=== PATIENT | male | born 1940 | race Caucasian/White ===

== ENCOUNTER 2016-12-12 01:13 | Emergency (ER) | payer MEDICARE, MEDICAID ==
[2016-12-12] MEDS ORDERED: hydrOXYzine HCl 25 MG Tab PO ONE ×2 (01:14→01:49)
[2016-12-12 01:36] VITALS: BP 190/99
--- NOTE | 2016-12-12 01:55 | EDM.PDOC ---
ED HPI GENERAL MEDICAL PROBLEM - General Chief Complaint: Cardiovascular Problem Stated Complaint: BP CHECKED [id number] Time Seen by Provider: 12/12/16 01:50 Source of Information: Reports: Patient History Limitations: Reports: No Limitations - History of Present Illness INITIAL COMMENTS - FREE TEXT/NARRATIVE: states his BP been high all night which causes him to be anxious. states was sick before and the docs had problems in regulating his BP. - Related Data Allergies Allergy/AdvReac Type Severity Reaction Status Date / Time gemfibrozil Allergy Leg Cramps Verified 12/12/16 01:27 Penicillins Allergy Hives Verified 12/12/16 01:27 albuterol AdvReac Tremors Verified 12/12/16 01:27 Home Meds: Home Meds Bisoprolol/Hydrochlorothiazide [Ziac 5-6.25 MG] 5 - 6.25 mg PO Q48H 05/24/15 [ History] Tamsulosin [Flomax] 0.4 mg PO BEDTIME 07/26/15 [History] Gabapentin [Neurontin] 300 mg PO BID 08/07/15 [History] Labetalol [Normodyne] 100 mg PO BID 04/14/16 [History] Past Medical History HEENT History: Reports: Impaired Vision Other HEENT History: wears glasses Cardiovascular History: Reports: Afib, Hypertension, Other (See Below) Other Cardiovascular History: "occasionally have had afib" Respiratory History: Reports: Bronchitis, Recurrent, Pneumonia, Recurrent Gastrointestinal History: Reports: None Genitourinary History: Reports: Prostate Disorder Musculoskeletal History: Reports: Back Pain, Chronic, Neck Pain, Chronic, Osteoarthritis Neurological History: Reports: TIA Other Neuro History: MRI recently showed "bumps in neck pressing on nerves" Psychiatric History: Reports: None Endocrine/Metabolic History: Reports: None Hematologic History: Reports: None Immunologic History: Reports: None Oncologic (Cancer) History: Reports: None Dermatologic History: Reports: None - Infectious Disease History Infectious Disease History: Reports: Chicken Pox, Measles, Mumps - Past Surgical History Head Surgeries/Procedures: Reports: None Social & Family History - Family History Family Medical History: Noncontributory Neurological: Reports: CVA - Tobacco Use Smoking Status *Q: Unknown Ever Smoked Years of Tobacco use: 20 Packs/Tins Daily: 0.5 Used Tobacco, but Quit: Yes Month Tobacco Last Used: 30 years ago Second Hand Smoke Exposure: No - Caffeine Use Caffeine Use: Reports: Soda Caffeine Use Comment: 1 bottle of Coke /day - Recreational Drug Use Recreational Drug Use: No - Living Situation & Occupation Living situation: Reports: Single, Alone Occupation: Retired ED ROS GENERAL - Review of Systems Review Of Systems: ROS reveals no pertinent complaints other than HPI. ED EXAM, GENERAL - Physical Exam Exam: See Below Exam Limited By: No Limitations General Appearance: Alert, WD/WN, Anxious Ears: Hearing Grossly Normal Throat/Mouth: Normal Voice, No Airway Compromise Head: Atraumatic Neck: Non-Tender, Full Range of Motion Respiratory/Chest: No Respiratory Distress Cardiovascular: Regular Rate, Rhythm GI/Abdominal: Soft, Non-Tender Neurological: Alert, Oriented, Normal Cognition, Normal Gait, No Motor/Sensory Deficits Psychiatric: Anxious Skin Exam: Warm, Dry, Normal Color Lymphatic: No Adenopathy Course - Vital Signs Last Recorded V/S: Last Vital Signs Temp 36.4 C 12/12/16 01:35 Pulse Resp 20 12/12/16 01:35 BP 190/99 H 12/12/16 01:36 Pulse Ox 98 12/12/16 01:35 - Orders/Labs/Meds Labs: Laboratory Tests 12/12/16 12/12/16 Range/Units 01:55 01:55 WBC 7.3 (5.0-10.0) 10^3/uL RBC 4.03 L (4.6-6.2) 10^6/uL Hgb 12.3 L (14.0-18.0) g/dL Hct 36.0 L (40.0-54.0) % MCV 89.3 (80-100) fL MCH 30.5 (27.0-34.0) pg MCHC 34.2 (33.0-35.0) g/dL Plt Count 120 L (150-450) 10^3/uL Neut % (Auto) 75.1 (42.2-75.2) % Lymph % (Auto) 14.5 L (20.5-50.1) % Story % (Auto) 7.7 (2-8) % Eos % (Auto) 2.2 (1.0-3.0) % Baso % (Auto) 0.5 (0.0-1.0) % Sodium 141 (135-145) mmol/L Potassium 4.3 (3.6-5.0) mmol/L Chloride 105 (101-111) mmol/L Carbon Dioxide 26.0 (21.0-31.0) mmol/L Anion Gap 14.3 BUN 30 H (7-18) mg/dL Creatinine 2.2 H (0.6-1.3) mg/dL Est Cr Clr Drug Dosing 30.42 mL/min Estimated GFR (MDRD) 29 BUN/Creatinine Ratio 13.63 Glucose 101 (74-105) mg/dL Calcium 8.6 (8.4-10.2) mg/dl Total Bilirubin 1.2 H (0.2-1.0) mg/dL AST 22 (10-42) IU/L ALT 22 (10-60) IU/L Alkaline Phosphatase 77 (42-121) IU/L Troponin I < 0.02 (0.00-0.02) ng/ml Total Protein 6.0 L (6.7-8.2) g/dl Albumin 4.0 (3.2-5.5) g/dl Globulin 2.0 Albumin/Globulin Ratio 2.00 Meds: Medications Discontinued Medications Generic Name Dose Route Start Last Admin Trade Name Freq PRN Reason Stop Dose Admin Hydroxyzine HCl 25 mg 12/12/16 01:49 12/12/16 01:59 Atarax PO 12/12/16 01:50 25 mg ONETIME ONE Administration - Re-Assessments/Exams Free Text/Narrative Re-Assessment/Exam: 12/12/16 02:35 re-exam; pt feels much better with BP lower and req' Rx for anxiety. states lives alone. Departure - Departure Time of Disposition: 02:35 Disposition: Home, Self-Care 01 Condition: Good Clinical Impression: HTN (hypertension) Qualifiers: Hypertension type: unspecified Qualified Code(s): I10 - Essential (primary) hypertension Reaction, situational Qualifiers: Adjustment disorder type: with anxious mood Qualified Code(s): F43.22 - Adjustment disorder with anxiety Instructions: Hypertension, [id number] Forms: ED Department Discharge Additional Instructions: 1) rest and avoid bending lifting straining 2) follow up with family doctor Tuesday for medication adjustment rx given; atarax 25mg bid prn x 12
[2016-12-12 02:18] LABS: CHLORIDE,CL 105 mmol/L (101-111); SODIUM,NA 141 mmol/L (135-145)
[2016-12-12] MEDS ORDERED: hydrOXYzine HCl 25 MG Tab ONE (02:35)
== END 2016-12-12 02:46 | disposition home or self-care (01) ==
LOC: DL.ED 01:13
DX: I10 Essential (primary) hypertension (principal); F43.22 Adjustment disorder with anxiety; I48.91 Unspecified atrial fibrillation; M19.90 Unspecified osteoarthritis, unspecified site; Z86.73 Personal history of transient ischemic attack (TIA), and cerebral infarction without residual deficits; Z87.891 Personal history of nicotine dependence; Z88.0 Allergy status to penicillin; Z88.8 Allergy status to other drugs, medicaments and biological substances
CPT/HCPCS: 36415; 80053; 84484; 85025; 99284; A9270

== ENCOUNTER 2017-02-19 14:06 | Inpatient (IN) | payer MEDICARE, MEDICAID ==
[2017-02-19] MEDS ORDERED: Ipratropium 0.02% 0.5 MG/2.5 ML Neb Soln NEB ONE (14:46)
[2017-02-19] MEDS ORDERED: Levofloxacin/Dextrose 5%-Water 500 MG in Premix Bag 1 BAG IV ONE (15:36)
[2017-02-19] MEDS: Lactated Ringers 1,000 ML IV ONE ×2 (15:48→16:13)
[2017-02-19] MEDS: Sodium Chloride 0.9% 10 ML Syringe FLUSH PRN ×2 (16:14→23:07)
--- NOTE | 2017-02-19 16:26 | EDM.PDOC ---
Scribed by Neeta Cline 02/19/17 [id number] for Adi Sprague MD ED HPI GENERAL MEDICAL PROBLEM - General Chief Complaint: Respiratory Problem Stated Complaint: ? PNEUMONIA Time Seen by Provider: 02/19/17 14:52 Source of Information: Reports: Patient, RN, RN Notes Reviewed History Limitations: Reports: No Limitations - History of Present Illness INITIAL COMMENTS - FREE TEXT/NARRATIVE: Patient arrives from home by POV with complaint of 3 days of worsening productive cough and thick yellow sputum, fevers, chills and generalized weakness. Admits to slight shortness of breath, decreased appetite and fatigue. Location: Reports: Chest Quality: Reports: Ache Severity: Severe Improves with: Reports: None Worsens with: Reports: None Associated Symptoms: Reports: No Other Symptoms - Related Data Allergies Allergy/AdvReac Type Severity Reaction Status Date / Time gemfibrozil Allergy Leg Cramps Verified 12/12/16 01:27 Penicillins Allergy Hives Verified 12/12/16 01:27 albuterol AdvReac Tremors Verified 12/12/16 01:27 Home Meds: Home Meds Bisoprolol/Hydrochlorothiazide [Ziac 5-6.25 MG] 5 - 6.25 mg PO DAILY 05/24/15 [ History] Tamsulosin [Flomax] 0.4 mg PO BEDTIME 07/26/15 [History] Gabapentin [Neurontin] 300 mg PO BID 08/07/15 [History] Labetalol [Normodyne] 100 mg PO BID 04/14/16 [History] Past Medical History HEENT History: Reports: Impaired Vision Other HEENT History: wears glasses Cardiovascular History: Reports: Afib, Hypertension, Other (See Below) Other Cardiovascular History: "occasionally have had afib" Respiratory History: Reports: Bronchitis, Recurrent, Pneumonia, Recurrent Gastrointestinal History: Reports: None Genitourinary History: Reports: Prostate Disorder Musculoskeletal History: Reports: Back Pain, Chronic, Neck Pain, Chronic, Osteoarthritis Neurological History: Reports: TIA Other Neuro History: MRI recently showed "bumps in neck pressing on nerves" Psychiatric History: Reports: None Endocrine/Metabolic History: Reports: None Hematologic History: Reports: None Immunologic History: Reports: None Oncologic (Cancer) History: Reports: None Dermatologic History: Reports: None - Infectious Disease History Infectious Disease History: Reports: Chicken Pox, Measles, Mumps - Past Surgical History Head Surgeries/Procedures: Reports: None Social & Family History - Family History Family Medical History: Noncontributory Neurological: Reports: CVA - Tobacco Use Smoking Status *Q: Former Smoker Years of Tobacco use: 20 Packs/Tins Daily: 0.5 Used Tobacco, but Quit: Yes Month Tobacco Last Used: 30 years ago Second Hand Smoke Exposure: No - Caffeine Use Caffeine Use: Reports: Soda Caffeine Use Comment: 1 bottle of Coke /day - Recreational Drug Use Recreational Drug Use: No - Living Situation & Occupation Living situation: Reports: Single, Alone Occupation: Retired ED ROS GENERAL - Review of Systems Review Of Systems: ROS reveals no pertinent complaints other than HPI. ED EXAM, GENERAL - Physical Exam Exam: See Below Exam Limited By: No Limitations General Appearance: Other (chronicly ill appearing. Non toxici appearing.) Eye Exam: Bilateral Eye: Normal Inspection Ears: Normal External Exam, Normal Canal, Hearing Grossly Normal, Normal TMs Nose: Normal Inspection, Normal Mucosa, No Blood Throat/Mouth: Normal Inspection, Normal Lips, Normal Teeth, Normal Gums, Normal Oropharynx, Normal Voice, No Airway Compromise Head: Atraumatic, Normocephalic Neck: Normal Inspection, Supple, Non-Tender, Full Range of Motion Respiratory/Chest: Decreased Breath Sounds (at bilateral bases with lower chest rhonchi.) Cardiovascular: Irregularly Irregular GI/Abdominal: Normal Bowel Sounds, Soft, Non-Tender, No Organomegaly, No Distention, No Abnormal Bruit, No Mass (Male) Exam: Deferred Rectal (Males) Exam: Deferred Back Exam: Normal Inspection, Full Range of Motion, NT Extremities: Normal Inspection, Normal Range of Motion, Non-Tender, Normal Capillary Refill, No Pedal Edema Neurological: Other (generalized weakness.) Psychiatric: Normal Affect, Normal Mood Skin Exam: Warm, Dry, Intact, Normal Color, No Rash Lymphatic: No Adenopathy Course - Vital Signs Last Recorded V/S: Last Vital Signs Temp 37.1 C 02/19/17 16:23 Pulse 67 02/19/17 16:23 Resp 14 02/19/17 16:23 BP 180/99 H 02/19/17 16:23 Pulse Ox 93 L 02/19/17 14:20 - Orders/Labs/Meds Orders: Active Orders 24 hr Category Date Time Status Peripheral IV Care [RC] . DIRECTED Care 02/19/17 14:47 Active RT Aerosol Therapy [RC] ASDIRECTED Care 02/19/17 14:45 Active RT Post Treatment Assessment [RC] Click to Edit Care 02/19/17 14:46 Active Chest 1V Frontal [CR] Stat Exams 02/19/17 14:47 Taken CULTURE BLOOD [BC] Stat Lab 02/19/17 15:00 Received CULTURE BLOOD [BC] Stat Lab 02/19/17 15:11 Received CULTURE SPUTUM + SMEAR [RM] Stat Lab 02/19/17 15:10 Results CULTURE STREP A CONFIRMATION [RM] Stat Lab 02/19/17 15:14 Results STREP SCRN A RAPID W CULT CONF [] Stat Lab 02/19/17 15:14 Results Lactated Ringers [Ringers, Lactated] 1,000 ml Med 02/19/17 15:35 Active IV .BOLUS Levofloxacin/Dextrose 5%-Water [Levaquin in D5W 500 MG/ Med 02/19/17 15:36 Active 100 ML] 500 mg Premix Bag 1 bag IV ONETIME Sodium Chloride 0.9% [Saline Flush] Med 02/19/17 14:46 Active 10 ml FLUSH ASDIRECTED PRN Blood Culture x2 Reflex Set [OM.PC] Stat Oth 02/19/17 14:47 Ordered Peripheral IV Insertion Adult [OM.PC] Stat Oth 02/19/17 14:47 Ordered Medication Orders Lactated Ringer's (Ringers, Lactated) 1,000 mls @ 200 mls/hr IV .BOLUS ONE Stop: 02/19/17 20:34 Last Admin: 02/19/17 16:13 Dose: 200 mls/hr Infusion: 02/19/17 16:13 Dose: 200 mls/hr Admin: 02/19/17 15:48 Dose: 200 mls/hr Levofloxacin/Dextrose 500 mg/ (Premix) 100 mls @ 100 mls/hr IV ONETIME ONE Stop: 02/19/17 16:35 Last Admin: 02/19/17 16:16 Dose: 100 mls/hr Sodium Chloride (Saline Flush) 10 ml FLUSH ASDIRECTED PRN PRN Reason: Keep Vein Open Last Admin: 02/19/17 16:14 Dose: 10 ml Labs: Laboratory Tests 02/19/17 02/19/17 02/19/17 Range/Units 15:00 15:00 15:00 WBC 12.3 H (5.0-10.0) 10^3/uL RBC 4.33 L (4.6-6.2) 10^6/uL Hgb 13.3 L (14.0-18.0) g/dL Hct 38.2 L (40.0-54.0) % MCV 88.2 (80-100) fL MCH 30.7 (27.0-34.0) pg MCHC 34.8 (33.0-35.0) g/dL Plt Count 121 L (150-450) 10^3/uL Neut % (Auto) 86.2 H (42.2-75.2) % Lymph % (Auto) 5.7 L (20.5-50.1) % Pershing % (Auto) 6.9 (2-8) % Eos % (Auto) 1.0 (1.0-3.0) % Baso % (Auto) 0.2 (0.0-1.0) % Sodium 140 (135-145) mmol/L Potassium 4.3 (3.6-5.0) mmol/L Chloride 105 (101-111) mmol/L Carbon Dioxide 27.0 (21.0-31.0) mmol/L Anion Gap 12.3 BUN 26 H (7-18) mg/dL Creatinine 1.8 H (0.6-1.3) mg/dL Est Cr Clr Drug Dosing 37.18 mL/min Estimated GFR (MDRD) 37 BUN/Creatinine Ratio 14.44 Glucose 103 (74-105) mg/dL Lactic Acid 1.1 (0.5-2.2) mmol/L Calcium 9.0 (8.4-10.2) mg/dl Total Bilirubin 1.2 H (0.2-1.0) mg/dL AST 20 (10-42) IU/L ALT 21 (10-60) IU/L Alkaline Phosphatase 85 (42-121) IU/L Total Protein 6.3 L (6.7-8.2) g/dl Albumin 4.2 (3.2-5.5) g/dl Globulin 2.1 Albumin/Globulin Ratio 2.00 Urine Color (YELLOW) Urine Appearance (CLEAR) Urine pH (5.0-9.0) Ur Specific [place] (1.005-1.030) Urine Protein (NEGATIVE) Urine Glucose (UA) (NEGATIVE) Urine Ketones (NEGATIVE) Urine Occult Blood (NEGATIVE) Urine Nitrite (NEGATIVE) Urine Bilirubin (NEGATIVE) Urine Urobilinogen (0.2-1.0) mg/dL Ur Leukocyte Esterase (NEGATIVE) Urine RBC /HPF Urine WBC (0-5/HPF) /HPF Ur Epithelial Cells /HPF Urine Bacteria (0-FEW/HPF) /HPF 02/19/17 Range/Units 15:50 WBC (5.0-10.0) 10^3/uL RBC (4.6-6.2) 10^6/uL Hgb (14.0-18.0) g/dL Hct (40.0-54.0) % MCV (80-100) fL MCH (27.0-34.0) pg MCHC (33.0-35.0) g/dL Plt Count (150-450) 10^3/uL Neut % (Auto) (42.2-75.2) % Lymph % (Auto) (20.5-50.1) % Pershing % (Auto) (2-8) % Eos % (Auto) (1.0-3.0) % Baso % (Auto) (0.0-1.0) % Sodium (135-145) mmol/L Potassium (3.6-5.0) mmol/L Chloride (101-111) mmol/L Carbon Dioxide (21.0-31.0) mmol/L Anion Gap BUN (7-18) mg/dL Creatinine (0.6-1.3) mg/dL Est Cr Clr Drug Dosing mL/min Estimated GFR (MDRD) BUN/Creatinine Ratio Glucose (74-105) mg/dL Lactic Acid (0.5-2.2) mmol/L Calcium (8.4-10.2) mg/dl Total Bilirubin (0.2-1.0) mg/dL AST (10-42) IU/L ALT (10-60) IU/L Alkaline Phosphatase (42-121) IU/L Total Protein (6.7-8.2) g/dl Albumin (3.2-5.5) g/dl Globulin Albumin/Globulin Ratio Urine Color Yellow (YELLOW) Urine Appearance Clear (CLEAR) Urine pH 5.0 (5.0-9.0) Ur Specific [place] 1.015 (1.005-1.030) Urine Protein 30 H (NEGATIVE) Urine Glucose (UA) Negative (NEGATIVE) Urine Ketones Negative (NEGATIVE) Urine Occult Blood Negative (NEGATIVE) Urine Nitrite Negative (NEGATIVE) Urine Bilirubin Negative (NEGATIVE) Urine Urobilinogen 0.2 (0.2-1.0) mg/dL Ur Leukocyte Esterase Negative (NEGATIVE) Urine RBC 0-5 /HPF Urine WBC 0-5 (0-5/HPF) /HPF Ur Epithelial Cells Not seen /HPF Urine Bacteria Rare (0-FEW/HPF) /HPF Rapid strep: Negative. Influenza A and B: Negative. Meds: Medications Generic Name Dose Route Start Last Admin Trade Name Freq PRN Reason Stop Dose Admin Lactated Ringer's 1,000 mls @ 200 mls/hr 02/19/17 15:35 02/19/17 16:13 Ringers, Lactated IV 02/19/17 20:34 200 mls/hr .BOLUS ONE Administration Levofloxacin/Dextrose 500 mg/ 100 mls @ 100 mls/hr 02/19/17 15:36 02/19/17 16 :16 Premix IV 02/19/17 16:35 100 mls/hr ONETIME ONE Administration Sodium Chloride 10 ml 02/19/17 14:46 02/19/17 16:14 Saline Flush FLUSH 10 ml ASDIRECTED PRN Administration Keep Vein Open Discontinued Medications Generic Name Dose Route Start Last Admin Trade Name Freq PRN Reason Stop Dose Admin Ipratropium Wirt 0.5 mg 02/19/17 14:46 02/19/17 15:18 Atrovent NEB 02/19/17 14:47 0.5 mg ONETIME ONE Administration - Radiology Interpretation Free Text/Narrative:: Chest x-ray. Probable right lower lobe and left lower lobe atelectasis. Early consolidation considered less likely but not excludable. See rad report. Departure - Departure Time of Disposition: 16:23 (Admit to Dr. Red) Disposition: Admitted As Inpatient 68 Condition: Serious Clinical Impression: Generalized weakness Pneumonia Qualifiers: Pneumonia type: due to unspecified organism Laterality: bilateral Lung location : lower lobe of lung Qualified Code(s): J18.9 - Pneumonia, unspecified organism - Discharge Information Forms: ED Department Discharge - My Orders Last 24 Hours: My Active Orders 02/19/17 14:45 RT Aerosol Therapy [RC] ASDIRECTED 02/19/17 14:46 RT Post Treatment Assessment [RC] Click to Edit Sodium Chloride 0.9% [Saline Flush] 10 ml FLUSH ASDIRECTED PRN 02/19/17 14:47 Peripheral IV Care [RC] . DIRECTED Chest 1V Frontal [CR] Stat Blood Culture x2 Reflex Set [OM.PC] Stat Peripheral IV Insertion Adult [OM.PC] Stat 02/19/17 15:00 CULTURE BLOOD [BC] Stat 02/19/17 15:10 CULTURE SPUTUM + SMEAR [RM] Stat 02/19/17 15:11 CULTURE BLOOD [BC] Stat 02/19/17 15:14 CULTURE STREP A CONFIRMATION [RM] Stat STREP SCRN A RAPID W CULT CONF [RM] Stat 02/19/17 15:35 Lactated Ringers [Ringers, Lactated] 1,000 ml IV .BOLUS 02/19/17 15:36 Levofloxacin/Dextrose 5%-Water [Levaquin in D5W 500 MG/100 ML] 500 mg Premix Bag 1 bag IV ONETIME - Assessment/Plan Last 24 Hours: My Active Orders 02/19/17 14:45 RT Aerosol Therapy [RC] ASDIRECTED 02/19/17 14:46 RT Post Treatment Assessment [RC] Click to Edit Sodium Chloride 0.9% [Saline Flush] 10 ml FLUSH ASDIRECTED PRN 02/19/17 14:47 Peripheral IV Care [RC] . DIRECTED Chest 1V Frontal [CR] Stat Blood Culture x2 Reflex Set [OM.PC] Stat Peripheral IV Insertion Adult [OM.PC] Stat 02/19/17 15:00 CULTURE BLOOD [BC] Stat 02/19/17 15:10 CULTURE SPUTUM + SMEAR [RM] Stat 02/19/17 15:11 CULTURE BLOOD [BC] Stat 02/19/17 15:14 CULTURE STREP A CONFIRMATION [RM] Stat STREP SCRN A RAPID W CULT CONF [RM] Stat 02/19/17 15:35 Lactated Ringers [Ringers, Lactated] 1,000 ml IV .BOLUS 02/19/17 15:36 Levofloxacin/Dextrose 5%-Water [Levaquin in D5W 500 MG/100 ML] 500 mg Premix Bag 1 bag IV ONETIME I have read and agree with the documentation that has been completed regarding this visit. By signing this record, I attest that the documentation was completed in my physical presence and is an accurate record of the encounter.
[2017-02-19] MEDS ORDERED: diphenhydrAMINE 50 MG/ML SDV IVPUSH ONE (16:30)
[2017-02-19] MEDS ORDERED: cefTRIAXone 1 GM in Sodium Chloride 0.9% 50 ML IV ONE (16:31)
[2017-02-19] MEDS ORDERED: Azithromycin 500 MG in Sodium Chloride 0.9% 250 ML IV ONE (16:32)
[2017-02-19] MEDS ORDERED: LORazepam 1 MG Tab PO ONE (16:47)
--- NOTE | 2017-02-19 18:19 | PCM.HP ---
H&P History of Present Illness - General Date of Service: 02/19/17 Source of Information: Patient, Family History Limitations: Reports: No Limitations - History of Present Illness Initial Comments - Free Text/Narative: Charlie Castañeda a 76 y.o.~male~has a history of hypertension , has been intermittently on medications, Afib in 2013., no history of diabetes Mellitus or coronary artery disease. On August 19, 2015, he underwent L4-L5 decompression surgery.Subsequently, he developed wound dehiscence with CSF leak was readmitted to [facility] on September 16, 2015. He developed headache, neck stiffness, alteration of mental status, and was having fever. He underwent bedside repair of CSF leak and was noted to have meningitis and was treted for roasterman with abx, for some he was at OR but now living independently with weekly home health nurse visit. Today he came to ED with weakness and complaint of 3 days of worsening productive cough and thick yellow sputum, fevers, chills . CXR showed probale Rt Lower lobe atelectasis vs. early consolidation Onset of Symptoms: Reports: Today Associated Symptoms: Reports: cough w sputum, Weakness - Related Data Allergies/Adverse Reactions: Allergies Allergy/AdvReac Type Severity Reaction Status Date / Time gemfibrozil Allergy Leg Cramps Verified 02/19/17 17:30 levofloxacin [From Levaquin] Allergy Rash and Verified 02/19/17 17:30 welts Penicillins Allergy Hives Verified 02/19/17 17:30 albuterol AdvReac Tremors Verified 02/19/17 17:30 Home Medications: Home Meds Bisoprolol/Hydrochlorothiazide [Ziac 5-6.25 MG] 5 - 6.25 mg PO DAILY 05/24/15 [ History] Tamsulosin [Flomax] 0.4 mg PO BEDTIME 07/26/15 [History] Gabapentin [Neurontin] 300 mg PO BID 08/07/15 [History] Labetalol [Normodyne] 100 mg PO BID 04/14/16 [History] Aspirin [Halfprin] 81 mg PO BRK 02/19/17 [History] Past Medical History HEENT History: Reports: Cataract, Impaired Vision Other HEENT History: wears glasses Cardiovascular History: Reports: Afib, Hypertension, Other (See Below) Other Cardiovascular History: "occasionally have had afib" Respiratory History: Reports: Bronchitis, Recurrent, Pneumonia, Recurrent Gastrointestinal History: Reports: None Genitourinary History: Reports: Prostate Disorder Musculoskeletal History: Reports: Back Pain, Chronic, Neck Pain, Chronic, Osteoarthritis Neurological History: Reports: TIA Other Neuro History: MRI recently showed "bumps in neck pressing on nerves" Psychiatric History: Reports: None Endocrine/Metabolic History: Reports: None Hematologic History: Reports: None Immunologic History: Reports: None Oncologic (Cancer) History: Reports: None Dermatologic History: Reports: Other (See Below) Other Dermatologic History: Ichthyosis - Infectious Disease History Infectious Disease History: Reports: Chicken Pox, Measles, Mumps Other Infectious Disease History: bacterial Meningitis 2016 - Past Surgical History Head Surgeries/Procedures: Reports: None HEENT Surgical History: Reports: None GI Surgical History: Reports: None Male Surgical History: Reports: None Musculoskeletal Surgical History: Reports: Other (See Below) Other Musculoskeletal Surgeries/Procedures:: back [id number] Social & Family History - Family History Family Medical History: Noncontributory Neurological: Reports: CVA - Tobacco Use Smoking Status *Q: Former Smoker Years of Tobacco use: 20 Packs/Tins Daily: 0.5 Used Tobacco, but Quit: Yes Month Tobacco Last Used: May Second Hand Smoke Exposure: No - Caffeine Use Caffeine Use: Reports: Coffee, Soda Caffeine Use Comment: 1 bottle of Coke /day - Recreational Drug Use Recreational Drug Use: No - Living Situation & Occupation Living situation: Reports: Single, Alone Occupation: Retired H&P Review of Systems - Review of Systems: Review Of Systems: See Below General: Reports: Fever, Weakness HEENT: Denies: Eye Pain, Headaches, Sinus Congestion, Visual Changes Pulmonary: Reports: Cough, Sputum. Denies: Shortness of Breath, Wheezing, Pleuritic Chest Pain Cardiovascular: Reports: Chest Pain, Lightheadedness Gastrointestinal: Denies: Abdominal Pain, Diarrhea, Difficulty Swallowing, Nausea, Vomiting Genitourinary: Denies: Dysuria, Frequency, Burning, Flank Pain Musculoskeletal: Denies: Neck Pain, Arm Pain, Back Pain, Muscle Pain Skin: Denies: Cyanosis, Dryness, Bruising, Pruritis, Rash Psychiatric: Denies: Confusion, Anxiety Neurological: Reports: Tremors (intentional). Denies: Confusion, Numbness Hematologic/Lymphatic: Reports: No Symptoms Immunologic: Reports: No Symptoms Exam - Exam Exam: See Below - Vital Signs Vital Signs: Last Vital Signs Temp 37.2 C 02/19/17 17:30 Pulse 78 02/19/17 17:30 Resp 20 02/19/17 17:30 BP 171/105 H 02/19/17 17:30 Pulse Ox 96 02/19/17 17:30 Weight: 95.527 kg - Exam Quality Assessment: Supplemental Oxygen, DVT Prophylaxis. No: Urinary Catheter General: Alert, Oriented, Cooperative HEENT: Conjunctiva Clear, EOMI, Hearing Intact, Mucosa Moist & [place] Neck: Supple. No: Lymphadenopathy, JVD Cardiovascular: Regular Rate, Regular Rhythm, Systolic Murmur GI/Abdominal Exam: Normal Bowel Sounds, Soft, Non-Tender, No Distention. No: Guarding, Rebound, Tender (Male) Exam: Deferred Rectal (Males) Exam: Deferred Back Exam: Normal Inspection, Full Range of Motion Extremities: Normal Inspection, No Pedal Edema Skin: Warm, Dry, Intact Neurological: Cranial Nerves Intact, Reflexes Equal Bilateral Neuro Extensive - Mental Status: Alert, Oriented x3, Normal Mood/Affect, Memory Intact Neuro Extensive - Motor, Sensory, Reflexes: CN II-XII Intact, Normal Gait, Normal Reflexes Psychiatric: Alert, Normal Affect, Normal Mood - Patient Data Result Diagrams: 02/19/17 15:00 02/19/17 15:00 *Q Meaningful Use (ADM) - VTE *Q VTE Criteria *Q: - Stroke *Q Stroke Criteria *Q: - AMI *Q AMI Criteria *Q: - Problem List (1) Pneumonia SNOMED Code(s): 133467341 ICD Code: J18.9 - PNEUMONIA, UNSPECIFIED ORGANISM Status: Acute Current Visit: Yes Qualifiers: Pneumonia type: due to unspecified organism Laterality: bilateral Lung location: lower lobe of lung Qualified Code(s): J18.9 - Pneumonia, unspecified organism (2) Weakness SNOMED Code(s): 70115965 ICD Code: R53.1 - WEAKNESS Status: Acute Current Visit: Yes (3) Low back pain SNOMED Code(s): 793307886 ICD Code: M54.5 - LOW BACK PAIN Status: Acute Current Visit: No Qualifiers: Chronicity: chronic Back pain laterality: left Sciatica presence: with sciatica Sciatica laterality: sciatica of left side Qualified Code(s): M54.42 - Lumbago with sciatica, left side; G89.29 - Other chronic pain; G89.29 - Other chronic pain Problem List Initiated/Reviewed/Updated: Yes Orders Last 24hrs: Medication Orders Lactated Ringer's (Ringers, Lactated) 1,000 mls @ 200 mls/hr IV .BOLUS ONE Stop: 02/19/17 20:34 Last Admin: 02/19/17 16:13 Dose: 200 mls/hr Infusion: 02/19/17 16:13 Dose: 200 mls/hr Admin: 02/19/17 15:48 Dose: 200 mls/hr Sodium Chloride (Saline Flush) 10 ml FLUSH ASDIRECTED PRN PRN Reason: Keep Vein Open Last Admin: 02/19/17 16:14 Dose: 10 ml Assessment/Plan Comment:: Mr. Guerra is a 76 y/O M admittted with low grade fever, weakness and possible Rt lower lobe Atelectasis Vs early consolidation 1. Likely Rt lower lobe pneumonia: This is likely community acquires Pneumonia -Will start him on Ceftriaxone 1 mg IV q12 hrs and Azithromycin 500 mg IV daily -Will continue supplemental oxygen to keep 02 sat>90% -Will encourage him to use incentive spirometry and Flutter valve 2. Weakness: The etiology not clear but likely from Pneumonia 3. Hypertension: Will continue labetalol and Hold Ziac 4. GI prophylaxis: continue protonix 5. DVT Prophylaxis: Heparin 5000 units TID 6. Code status: Discussed with and Son: he is full code
[2017-02-19] MEDS ORDERED: Docusate Sodium 100 MG Cap PO PRN (18:47)
[2017-02-19] MEDS ORDERED: Heparin Sodium 5,000 Units/ML Vial SUBCUT SCH (19:00)
[2017-02-19] MEDS: Acetaminophen 325 MG Tab PO PRN (21:06)
[2017-02-19] MEDS: Gabapentin 300 MG Cap PO SCH (21:07)
[2017-02-19] MEDS: Labetalol 100 MG Tab PO SCH (21:08)
[2017-02-19] MEDS: Tamsulosin 0.4 MG Cap.ER PO SCH (21:08)
[2017-02-19] MEDS: Heparin Sodium 5,000 Units/ML Vial SUBCUT SCH (21:11)
[2017-02-20] MEDS: Heparin Sodium 5,000 Units/ML Vial SUBCUT SCH ×4 (05:49→21:35)
[2017-02-20] MEDS: Pantoprazole 40 MG Tab.CR PO SCH (05:49)
[2017-02-20] MEDS: Aspirin 81 MG Tab.EC PO SCH (07:56)
[2017-02-20] MEDS: Gabapentin 300 MG Cap PO SCH ×3 (07:57→20:19)
[2017-02-20] MEDS: Acetaminophen 325 MG Tab PO PRN ×2 (07:57→20:33)
[2017-02-20] MEDS: Labetalol 100 MG Tab PO SCH ×3 (07:58→20:19)
[2017-02-20] MEDS ORDERED: Labetalol 100 MG Tab PO SCH (09:32)
[2017-02-20] MEDS: HYDROCHLOROTHIAZIDE PO SCH (10:55)
[2017-02-20] MEDS: BISOPROLOL PO SCH (10:55)
--- NOTE | 2017-02-20 11:59 | PCM.PN ---
- General Info Date of Service: 02/20/17 Admission Dx/Problem (Free Text): Admitted with: pneumonia, weakness and low grade fever Subjective Update: He is feeling much better today, No more fever, shortness of breath has improved significantly and still have with sputum Functional Status: Reports: Tolerating Diet. Denies: Ambulating, Urinating - Review of Systems General: Reports: Weakness, Appetite (good). Denies: Fever, Chills HEENT: Denies: Sinus Congestion, Sore Throat, Visual Changes Pulmonary: Reports: Shortness of Breath, Cough, Sputum. Denies: Wheezing Cardiovascular: Denies: Chest Pain, Edema, Lightheadedness Gastrointestinal: Denies: Abdominal Pain, Difficulty Swallowing, Nausea, Vomiting Genitourinary: Denies: Dysuria, Frequency, Burning, Urgency Musculoskeletal: Reports: Back Pain. Denies: Neck Pain, Shoulder Pain, Arm Pain Skin: Denies: Cyanosis, Jaundice, Bruising, Pruritis, Rash Neurological: Denies: Confusion, Numbness, Tingling, Tremors Psychiatric: Denies: Confusion, Anxiety - Patient Data Vitals - Most Recent: Last Vital Signs Temp 36.6 C 02/20/17 11:30 Pulse 62 02/20/17 11:30 Resp 20 02/20/17 11:30 BP 117/59 L 02/20/17 11:30 Pulse Ox 96 02/20/17 11:30 Weight - Most Recent: 95.527 kg I&O - Last 24 Hours: Intake & Output 02/19/17 02/20/17 02/20/17 22:59 06:59 14:59 Intake Total 250 1500 200 Output Total 100 750 300 Balance 150 750 -100 Lab Results Last 24 Hours: Laboratory Results - last 24 hr 02/20/17 Range/Units 06:05 WBC 11.1 H (5.0-10.0) 10^3/uL RBC 4.00 L (4.6-6.2) 10^6/uL Hgb 12.1 L (14.0-18.0) g/dL Hct 35.7 L (40.0-54.0) % MCV 89.3 (80-100) fL MCH 30.3 (27.0-34.0) pg MCHC 33.9 (33.0-35.0) g/dL Plt Count 107 L (150-450) 10^3/uL Neut % (Auto) 80.4 H (42.2-75.2) % Lymph % (Auto) 9.5 L (20.5-50.1) % [place] % (Auto) 8.7 H (2-8) % Eos % (Auto) 1.1 (1.0-3.0) % Baso % (Auto) 0.3 (0.0-1.0) % Med Orders - Current: Current Medications Acetaminophen (Tylenol) 650 mg PO Q4H PRN PRN Reason: Pain (mild 1-3 )/fever Last Admin: 02/20/17 07:57 Dose: 650 mg Aspirin (Halfprin) 81 mg PO BRK [facility] Last Admin: 02/20/17 07:56 Dose: 81 mg Ceftriaxone Sodium (Rocephin) 2 gm IV Q24H [facility] Docusate Sodium (Colace) 100 mg PO DAILY PRN PRN Reason: Constipation Last Admin: 02/20/17 07:56 Dose: 100 mg Gabapentin (Neurontin) 300 mg PO BID [facility] Last Admin: 02/20/17 08:07 Dose: Not Given Heparin Sodium (Porcine) (Heparin Sodium) 5,000 units SUBCUT TID@0600,1400, 2200 [facility] Last Admin: 02/20/17 05:49 Dose: 5,000 units Azithromycin 500 mg/ Sodium (Chloride) 250 mls @ 250 mls/hr IV Q24H [facility] Labetalol HCl (Normodyne) 100 mg PO BID [facility] Bisoprolol/Hydrochlorothiazide [Ziac 5-6.25 Mg] Own Med 0 mg PO DAILY [facility] Last Admin: 02/20/17 10:55 Dose: 5 mg Pantoprazole Sodium (Protonix) 40 mg PO ACBREAKFAST [facility] Last Admin: 02/20/17 05:49 Dose: 40 mg Sodium Chloride (Saline Flush) 10 ml FLUSH ASDIRECTED PRN PRN Reason: Keep Vein Open Last Admin: 02/19/17 23:07 Dose: 10 ml Tamsulosin HCl (Flomax) 0.4 mg PO BEDTIME [facility] Last Admin: 02/19/17 21:08 Dose: 0.4 mg Discontinued Medications Diphenhydramine HCl (Benadryl) 25 mg IVPUSH ONETIME ONE Stop: 02/19/17 16:31 Last Admin: 12/02/17 16:44 Dose: 25 mg Heparin Sodium (Porcine) (Heparin Sodium) 5,000 units SUBCUT Q8H [facility] Last Admin: 02/19/17 21:27 Dose: Not Given Lactated Ringer's (Ringers, Lactated) 1,000 mls @ 200 mls/hr IV .BOLUS ONE Stop: 02/19/17 20:34 Last Infusion: 02/19/17 23:08 Dose: Infused Levofloxacin/Dextrose 500 mg/ (Premix) 100 mls @ 100 mls/hr IV ONETIME ONE Stop: 02/19/17 16:35 Last Admin: 02/19/17 16:16 Dose: 100 mls/hr Azithromycin 500 mg/ Sodium (Chloride) 250 mls @ 250 mls/hr IV ONETIME ONE Stop: 02/19/17 17:31 Last Admin: 02/19/17 17:32 Dose: 250 mls/hr Ceftriaxone Sodium 1 gm/ (Sodium Chloride) 50 mls @ 100 mls/hr IV ONETIME ONE Stop: 02/19/17 17:00 Last Admin: 02/19/17 16:46 Dose: 100 mls/hr Ipratropium [place] (Atrovent) 0.5 mg NEB ONETIME ONE Stop: 02/19/17 14:47 Last Admin: 02/19/17 15:18 Dose: 0.5 mg Labetalol HCl (Normodyne) 100 mg PO BID [facility] Last Admin: 02/20/17 08:08 Dose: Not Given Labetalol HCl (Normodyne) 150 mg PO BID [facility] Lorazepam (Ativan) 1 mg PO ONETIME ONE Stop: 02/19/17 16:48 Last Admin: 02/19/17 16:54 Dose: 1 mg - Exam Quality Assessment: Supplemental Oxygen, DVT Prophylaxis. No: Urine Catheter General: Alert, Oriented, Cooperative, No Acute Distress HEENT: Pupils Equal, EOMI, Mucous Membr. Moist/[place] Neck: Supple, No JVD, No Thyromegaly Lungs: Clear to Auscultation, Normal Respiratory Effort, Crackles. No: Rhonchi , Wheezing Cardiovascular: Regular Rate, Regular Rhythm, Murmurs GI/Abdominal Exam: Normal Bowel Sounds, Non-Tender, No Organomegaly, No Distention. No: Guarding, Rigid, Rebound (Male) Exam: Deferred Back Exam: Normal Inspection, Full Range of Motion Extremities: Normal Inspection, Normal Range of Motion, No Pedal Edema Skin: Warm, Dry, Intact Neurological: No New Focal Deficit Psy/Mental Status: Alert, Normal Affect, Normal Mood - Problem List & Annotations (1) Pneumonia SNOMED Code(s): 311768425 Code(s): J18.9 - PNEUMONIA, UNSPECIFIED ORGANISM Status: Acute Current Visit: Yes Qualifiers: Pneumonia type: due to unspecified organism Laterality: bilateral Lung location: lower lobe of lung Qualified Code(s): J18.9 - Pneumonia, unspecified organism (2) Weakness SNOMED Code(s): 34117793 Code(s): R53.1 - WEAKNESS Status: Acute Current Visit: Yes (3) Low back pain SNOMED Code(s): 951607175 Code(s): M54.5 - LOW BACK PAIN Status: Acute Current Visit: No Qualifiers: Chronicity: chronic Back pain laterality: left Sciatica presence: with sciatica Sciatica laterality: sciatica of left side Qualified Code(s): M54.42 - Lumbago with sciatica, left side; G89.29 - Other chronic pain; G89.29 - Other chronic pain - Problem List Review Problem List Initiated/Reviewed/Updated: Yes - My Orders Last 24 Hours: My Active Orders 02/19/17 21:00 Gabapentin [Neurontin] 300 mg PO BID Tamsulosin [Flomax] 0.4 mg PO BEDTIME 02/19/17 22:00 Heparin Sodium 5,000 units SUBCUT TID@0600,1400,2200 02/19/17 22:23 RT Incentive Spirometry [RC] ASDIRECTED 02/20/17 06:00 Pantoprazole [ProTONIX] 40 mg PO ACBREAKFAST 02/20/17 08:00 Aspirin [Halfprin] 81 mg PO BRK 02/20/17 09:00 Bisoprolol/Hydrochlorothiazide [Ziac 5-6.25 MG] 0 mg PO DAILY 02/20/17 09:54 Labetalol [Normodyne] 100 mg PO BID 02/20/17 19:00 cefTRIAXone [Rocephin] 2 gm IV Q24H 02/20/17 21:00 Azithromycin [Zithromax] 500 mg Sodium Chloride 0.9% [Normal Saline] 250 ml IV Q24H - Plan Plan:: Mr. Guerra is a 76 y/O M admitted with low grade fever, weakness and possible Rt lower lobe Atelectasis Vs early consolidation 1. Likely Rt lower lobe pneumonia: This is likely community acquires Pneumonia -Will continue him on Ceftriaxone 1 mg IV q12 hrs and Azithromycin 500 mg IV daily -Will continue supplemental oxygen to keep 02 sat>90% -Will encourage him to use incentive spirometry and Flutter valve 2. Weakness: The etiology not clear but likely from Pneumonia 3. Hypertension: Will continue labetalol and Ziac 4. GI prophylaxis: continue protonix 5. DVT Prophylaxis: Heparin 5000 units TID 6. Code status: Discussed with and Son: He is full code
[2017-02-20] MEDS: Tamsulosin 0.4 MG Cap.ER PO SCH (20:19)
[2017-02-20] MEDS: cefTRIAXone 2 GM Vial IV SCH (20:20)
[2017-02-20] MEDS: Azithromycin 500 MG in Sodium Chloride 0.9% 250 ML IV SCH (20:20)
[2017-02-20] MEDS: Sodium Chloride 0.9% 10 ML Syringe FLUSH PRN (20:20)
[2017-02-21] MEDS: Heparin Sodium 5,000 Units/ML Vial SUBCUT SCH ×3 (05:35→21:30)
[2017-02-21] MEDS: Pantoprazole 40 MG Tab.CR PO SCH (05:35)
[2017-02-21] MEDS: guaiFENesin/Dextromethorphan 100-10 MG/5 ML Soln 5 ML Cup PO PRN ×3 (05:37→22:30)
[2017-02-21] MEDS: Aspirin 81 MG Tab.EC PO SCH (10:25)
[2017-02-21] MEDS: Labetalol 100 MG Tab PO SCH ×2 (10:25→21:16)
[2017-02-21] MEDS: Gabapentin 300 MG Cap PO SCH ×2 (10:25→21:16)
[2017-02-21] MEDS: BISOPROLOL PO SCH (11:15)
[2017-02-21] MEDS: HYDROCHLOROTHIAZIDE PO SCH (11:15)
--- NOTE | 2017-02-21 12:40 | PCM.PN ---
- General Info Date of Service: 02/21/17 Admission Dx/Problem (Free Text): Admitted with: pneumonia, weakness and low grade fever Subjective Update: Continues to have cough, sputum, No more fever, shortness of breath better but still present - Review of Systems General: Denies: Fever Pulmonary: Reports: Shortness of Breath Cardiovascular: Reports: Chest Pain (With coughing) Gastrointestinal: Denies: Abdominal Pain Genitourinary: Denies: Dysuria - Patient Data Vitals - Most Recent: Last Vital Signs Temp 36.7 C 02/21/17 11:03 Pulse 74 02/21/17 11:03 Resp 20 02/21/17 11:03 BP 139/91 H 02/21/17 11:03 Pulse Ox 96 02/21/17 11:03 Weight - Most Recent: 91.081 kg I&O - Last 24 Hours: Intake & Output 02/20/17 02/21/17 02/21/17 22:59 06:59 14:59 Intake Total 501 400 200 Output Total 350 Balance 151 400 200 Med Orders - Current: Current Medications Acetaminophen (Tylenol) 650 mg PO Q4H PRN PRN Reason: Pain (mild 1-3 )/fever Last Admin: 02/20/17 20:33 Dose: 650 mg Aspirin (Halfprin) 81 mg PO BRK [facility] Last Admin: 02/21/17 10:25 Dose: 81 mg Benzocaine/Menthol (Cepacol Sore Throat) 1 lozenge MUCMEM Q6HR PRN PRN Reason: cough, sore throat Ceftriaxone Sodium (Rocephin) 2 gm IV Q24H [facility] Last Admin: 02/20/17 20:20 Dose: 2 gm Diphenhydramine HCl (Benadryl) 25 mg PO BEDTIME PRN PRN Reason: Sleep Docusate Sodium (Colace) 100 mg PO DAILY PRN PRN Reason: Constipation Last Admin: 02/20/17 07:56 Dose: 100 mg Gabapentin (Neurontin) 300 mg PO BID [facility] Last Admin: 02/21/17 10:25 Dose: 300 mg Guaifenesin/Phenylephrine HCl (Robitussin Dm) 5 ml PO Q8H PRN PRN Reason: Cough Last Admin: 02/21/17 05:37 Dose: 5 ml Heparin Sodium (Porcine) (Heparin Sodium) 5,000 units SUBCUT TID@0600,1400, 2200 [facility] Last Admin: 02/21/17 05:35 Dose: 5,000 units Azithromycin 500 mg/ Sodium (Chloride) 250 mls @ 250 mls/hr IV Q24H [facility] Last Admin: 02/20/17 20:20 Dose: 250 mls/hr Labetalol HCl (Normodyne) 100 mg PO BID [facility] Last Admin: 02/21/17 10:25 Dose: 100 mg Bisoprolol/Hydrochlorothiazide [Ziac 5-6.25 Mg] Own Med 0 mg PO DAILY [facility] Last Admin: 02/21/17 11:15 Dose: 5 mg Pantoprazole Sodium (Protonix) 40 mg PO ACBREAKFAST [facility] Last Admin: 02/21/17 05:35 Dose: 40 mg Sodium Chloride (Saline Flush) 10 ml FLUSH ASDIRECTED PRN PRN Reason: Keep Vein Open Last Admin: 02/20/17 20:20 Dose: 10 ml Tamsulosin HCl (Flomax) 0.4 mg PO BEDTIME [facility] Last Admin: 02/20/17 20:19 Dose: 0.4 mg Discontinued Medications Diphenhydramine HCl (Benadryl) 25 mg IVPUSH ONETIME ONE Stop: 02/19/17 16:31 Last Admin: 02/19/17 16:44 Dose: 25 mg Heparin Sodium (Porcine) (Heparin Sodium) 5,000 units SUBCUT Q8H [facility] Last Admin: 02/19/17 21:27 Dose: Not Given Lactated Ringer's (Ringers, Lactated) 1,000 mls @ 200 mls/hr IV .BOLUS ONE Stop: 02/19/17 20:34 Last Infusion: 02/19/17 23:08 Dose: Infused Levofloxacin/Dextrose 500 mg/ (Premix) 100 mls @ 100 mls/hr IV ONETIME ONE Stop: 02/19/17 16:35 Last Admin: 02/19/17 16:16 Dose: 100 mls/hr Azithromycin 500 mg/ Sodium (Chloride) 250 mls @ 250 mls/hr IV ONETIME ONE Stop: 02/19/17 17:31 Last Admin: 02/19/17 17:32 Dose: 250 mls/hr Ceftriaxone Sodium 1 gm/ (Sodium Chloride) 50 mls @ 100 mls/hr IV ONETIME ONE Stop: 02/19/17 17:00 Last Admin: 02/19/17 16:46 Dose: 100 mls/hr Ipratropium [place] (Atrovent) 0.5 mg NEB ONETIME ONE Stop: 02/19/17 14:47 Last Admin: 02/19/17 15:18 Dose: 0.5 mg Labetalol HCl (Normodyne) 100 mg PO BID [facility] Last Admin: 02/20/17 08:08 Dose: Not Given Labetalol HCl (Normodyne) 150 mg PO BID [facility] Lorazepam (Ativan) 1 mg PO ONETIME ONE Stop: 02/19/17 16:48 Last Admin: 02/19/17 16:54 Dose: 1 mg - Exam General: Alert, Oriented Neck: Supple Lungs: Normal Respiratory Effort, Decreased Breath Sounds Cardiovascular: Regular Rate, Regular Rhythm GI/Abdominal Exam: Normal Bowel Sounds, Soft, Non-Tender Extremities: No Pedal Edema - Problem List & Annotations (1) Pneumonia SNOMED Code(s): 144169854 Code(s): J18.9 - PNEUMONIA, UNSPECIFIED ORGANISM Status: Acute Current Visit: Yes Qualifiers: Pneumonia type: due to unspecified organism Laterality: bilateral Lung location: lower lobe of lung Qualified Code(s): J18.9 - Pneumonia, unspecified organism (2) Weakness SNOMED Code(s): 52364362 Code(s): R53.1 - WEAKNESS Status: Acute Current Visit: Yes - Problem List Review Problem List Initiated/Reviewed/Updated: Yes - My Orders Last 24 Hours: My Active Orders 02/21/17 12:20 Benzocaine/Cetylpyrd/Menthol [Cepacol Sore Throat] 1 lozenge MUCMEM Q6HR PRN 02/21/17 12:33 diphenhydrAMINE [Benadryl] 25 mg PO BEDTIME PRN 02/22/17 05:15 BASIC METABOLIC PANEL,BMP [CHEM] AM CBC WITH AUTO DIFF [HEME] AM - Plan Plan:: Mr. Guerra is a 76 y/O M admitted with low grade fever, weakness and possible Rt lower lobe Atelectasis Vs early consolidation 1. Likely Rt lower lobe community-acquired pneumonia -Treat with Ceftriaxone 1 mg IV q12 hrs and Azithromycin 500 mg IV daily -Will continue supplemental oxygen to keep 02 sat>90% -Will encourage him to use incentive spirometry and Flutter valve -Use cough suppressants, and Benadryl for sleep 2. Weakness: Improving 3. Hypertension: Will continue labetalol and Ziac 4. GI prophylaxis: continue protonix 5. DVT Prophylaxis: Heparin 5000 units TID
[2017-02-21] MEDS: Benzocaine/Cetylpyridinium/Menthol Lozenge MUCMEM PRN ×2 (14:47→22:30)
[2017-02-21] MEDS: Sodium Chloride 0.9% 10 ML Syringe FLUSH PRN ×4 (20:36→22:22)
[2017-02-21] MEDS: cefTRIAXone 2 GM Vial IV SCH (20:37)
[2017-02-21] MEDS: Azithromycin 500 MG in Sodium Chloride 0.9% 250 ML IV SCH (21:09)
[2017-02-21] MEDS: Tamsulosin 0.4 MG Cap.ER PO SCH (21:16)
[2017-02-22] MEDS: diphenhydrAMINE 25 MG Tab PO PRN ×2 (00:38→22:13)
[2017-02-22] MEDS: Heparin Sodium 5,000 Units/ML Vial SUBCUT SCH ×3 (06:03→21:07)
[2017-02-22] MEDS: Pantoprazole 40 MG Tab.CR PO SCH (06:05)
[2017-02-22] MEDS: Labetalol 100 MG Tab PO SCH ×2 (08:46→21:03)
[2017-02-22] MEDS: Aspirin 81 MG Tab.EC PO SCH (08:46)
[2017-02-22] MEDS: Gabapentin 300 MG Cap PO SCH ×2 (08:46→21:03)
--- NOTE | 2017-02-22 11:05 | PCM.PN ---
- General Info Date of Service: 02/22/17 Admission Dx/Problem (Free Text): Admitted with: pneumonia, weakness and low grade fever Subjective Update: Continues to have cough but feels better. Continues to have sputum, slept well last night shortness of breath better but still present No abdominal pain - Review of Systems General: Reports: Fever (Low-grade last night), Weakness Pulmonary: Reports: Shortness of Breath, Pleuritic Chest Pain, Cough Genitourinary: Denies: Dysuria Neurological: Denies: Confusion - Patient Data Vitals - Most Recent: Last Vital Signs Temp 36.8 C 02/22/17 07:51 Pulse 78 02/22/17 08:46 Resp 20 02/22/17 07:51 BP 133/77 02/22/17 08:46 Pulse Ox 96 02/22/17 07:51 Weight - Most Recent: 91.081 kg I&O - Last 24 Hours: Intake & Output 02/21/17 02/22/17 02/22/17 22:59 06:59 14:59 Intake Total 254 400 Output Total 220 Balance 254 180 Lab Results Last 24 Hours: Laboratory Results - last 24 hr 02/22/17 02/22/17 Range/Units 06:05 06:05 WBC 8.7 (5.0-10.0) 10^3/uL RBC 4.02 L (4.6-6.2) 10^6/uL Hgb 12.1 L (14.0-18.0) g/dL Hct 35.8 L (40.0-54.0) % MCV 89.1 (80-100) fL MCH 30.1 (27.0-34.0) pg MCHC 33.8 (33.0-35.0) g/dL Plt Count 111 L (150-450) 10^3/uL Neut % (Auto) 73.3 (42.2-75.2) % Lymph % (Auto) 13.0 L (20.5-50.1) % Burnett % (Auto) 10.2 H (2-8) % Eos % (Auto) 3.0 (1.0-3.0) % Baso % (Auto) 0.5 (0.0-1.0) % Sodium 142 (135-145) mmol/L Potassium 3.8 (3.6-5.0) mmol/L Chloride 102 (101-111) mmol/L Carbon Dioxide 28.0 (21.0-31.0) mmol/L Anion Gap 15.8 BUN 29 H (7-18) mg/dL Creatinine 1.9 H (0.6-1.3) mg/dL Est Cr Clr Drug Dosing 35.22 mL/min Estimated GFR (MDRD) 35 Glucose 78 (74-105) mg/dL Calcium 8.5 (8.4-10.2) mg/dl Med Orders - Current: Current Medications Acetaminophen (Tylenol) 650 mg PO Q4H PRN PRN Reason: Pain (mild 1-3 )/fever Last Admin: 02/20/17 20:33 Dose: 650 mg Aspirin (Halfprin) 81 mg PO BRK [facility] Last Admin: 02/22/17 08:46 Dose: 81 mg Benzocaine/Menthol (Cepacol Sore Throat) 1 lozenge MUCMEM Q6HR PRN PRN Reason: cough, sore throat Last Admin: 02/21/17 22:30 Dose: 1 lozenge Ceftriaxone Sodium (Rocephin) 2 gm IV Q24H [facility] Last Admin: 02/21/17 20:37 Dose: 2 gm Diphenhydramine HCl (Benadryl) 25 mg PO BEDTIME PRN PRN Reason: Sleep Last Admin: 02/22/17 00:38 Dose: 25 mg Docusate Sodium (Colace) 100 mg PO DAILY PRN PRN Reason: Constipation Last Admin: 02/20/17 07:56 Dose: 100 mg Gabapentin (Neurontin) 300 mg PO BID [facility] Last Admin: 02/22/17 08:46 Dose: 300 mg Guaifenesin/Phenylephrine HCl (Robitussin Dm) 5 ml PO Q8H PRN PRN Reason: Cough Last Admin: 02/21/17 22:30 Dose: 5 ml Heparin Sodium (Porcine) (Heparin Sodium) 5,000 units SUBCUT TID@0600,1400, 2200 [facility] Last Admin: 02/22/17 06:03 Dose: 5,000 units Azithromycin 500 mg/ Sodium (Chloride) 250 mls @ 250 mls/hr IV Q24H [facility] Last Admin: 02/21/17 21:09 Dose: 250 mls/hr Labetalol HCl (Normodyne) 100 mg PO BID [facility] Last Admin: 02/22/17 08:46 Dose: 100 mg Bisoprolol/Hydrochlorothiazide [Ziac 5-6.25 Mg] Own Med 0 mg PO DAILY [facility] Last Admin: 02/21/17 11:15 Dose: 5 mg Pantoprazole Sodium (Protonix) 40 mg PO ACBREAKFAST [facility] Last Admin: 02/22/17 06:05 Dose: 40 mg Sodium Chloride (Saline Flush) 10 ml FLUSH ASDIRECTED PRN PRN Reason: Keep Vein Open Last Admin: 02/21/17 22:22 Dose: 10 ml Tamsulosin HCl (Flomax) 0.4 mg PO BEDTIME [facility] Last Admin: 02/21/17 21:16 Dose: 0.4 mg Discontinued Medications Diphenhydramine HCl (Benadryl) 25 mg IVPUSH ONETIME ONE Stop: 02/19/17 16:31 Last Admin: 02/19/17 16:44 Dose: 25 mg Heparin Sodium (Porcine) (Heparin Sodium) 5,000 units SUBCUT Q8H [facility] Last Admin: 02/19/17 21:27 Dose: Not Given Lactated Ringer's (Ringers, Lactated) 1,000 mls @ 200 mls/hr IV .BOLUS ONE Stop: 02/19/17 20:34 Last Infusion: 02/19/17 23:08 Dose: Infused Levofloxacin/Dextrose 500 mg/ (Premix) 100 mls @ 100 mls/hr IV ONETIME ONE Stop: 02/19/17 16:35 Last Admin: 02/19/17 16:16 Dose: 100 mls/hr Azithromycin 500 mg/ Sodium (Chloride) 250 mls @ 250 mls/hr IV ONETIME ONE Stop: 02/19/17 17:31 Last Admin: 02/19/17 17:32 Dose: 250 mls/hr Ceftriaxone Sodium 1 gm/ (Sodium Chloride) 50 mls @ 100 mls/hr IV ONETIME ONE Stop: 02/19/17 17:00 Last Admin: 02/19/17 16:46 Dose: 100 mls/hr Ipratropium [place] (Atrovent) 0.5 mg NEB ONETIME ONE Stop: 02/19/17 14:47 Last Admin: 02/19/17 15:18 Dose: 0.5 mg Labetalol HCl (Normodyne) 100 mg PO BID [facility] Last Admin: 02/20/17 08:08 Dose: Not Given Labetalol HCl (Normodyne) 150 mg PO BID [facility] Lorazepam (Ativan) 1 mg PO ONETIME ONE Stop: 02/19/17 16:48 Last Admin: 02/19/17 16:54 Dose: 1 mg - Exam General: Alert Neck: Supple Lungs: Clear to Auscultation, Normal Respiratory Effort Cardiovascular: Regular Rate, Regular Rhythm Extremities: No Pedal Edema - Problem List & Annotations (1) Pneumonia SNOMED Code(s): 446755461 Code(s): J18.9 - PNEUMONIA, UNSPECIFIED ORGANISM Status: Acute Current Visit: Yes Qualifiers: Pneumonia type: due to unspecified organism Laterality: bilateral Lung location: lower lobe of lung Qualified Code(s): J18.9 - Pneumonia, unspecified organism (2) Weakness SNOMED Code(s): 00615850 Code(s): R53.1 - WEAKNESS Status: Acute Current Visit: Yes - Problem List Review Problem List Initiated/Reviewed/Updated: Yes - My Orders Last 24 Hours: My Active Orders 02/21/17 12:20 Benzocaine/Cetylpyrd/Menthol [Cepacol Sore Throat] 1 lozenge MUCMEM Q6HR PRN 02/21/17 12:33 diphenhydrAMINE [Benadryl] 25 mg PO BEDTIME PRN - Plan Plan:: Mr. Guerra is a 76 y/O M admitted with low grade fever, weakness and possible Rt lower lobe Atelectasis Vs early consolidation 1. Likely Rt lower lobe community-acquired pneumonia -Treat with Ceftriaxone 1 mg IV q12 hrs and Azithromycin 500 mg IV daily -Will supplement oxygen as needed -Will encourage him to use incentive spirometry and Flutter valve -Use cough suppressants, and Benadryl for sleep 2. Weakness: Improving 3. Hypertension: Will continue labetalol and Ziac 4. GI prophylaxis: continue protonix 5. DVT Prophylaxis: Heparin 5000 units TID
[2017-02-22] MEDS: BISOPROLOL PO SCH (14:03)
[2017-02-22] MEDS: HYDROCHLOROTHIAZIDE PO SCH (14:03)
[2017-02-22] MEDS: guaiFENesin/Dextromethorphan 100-10 MG/5 ML Soln 5 ML Cup PO PRN (14:38)
[2017-02-22] MEDS: Benzocaine/Cetylpyridinium/Menthol Lozenge MUCMEM PRN (14:38)
[2017-02-22] MEDS: cefTRIAXone 2 GM Vial IV SCH (18:04)
[2017-02-22] MEDS: Sodium Chloride 0.9% 10 ML Syringe FLUSH PRN (20:54)
[2017-02-22] MEDS: Azithromycin 500 MG in Sodium Chloride 0.9% 250 ML IV SCH (20:57)
[2017-02-22] MEDS: Tamsulosin 0.4 MG Cap.ER PO SCH (21:03)
[2017-02-22] MEDS: Acetaminophen 325 MG Tab PO PRN (21:12)
[2017-02-23] MEDS: Heparin Sodium 5,000 Units/ML Vial SUBCUT SCH (06:05)
[2017-02-23] MEDS: Pantoprazole 40 MG Tab.CR PO SCH (06:06)
[2017-02-23 07:58] VITALS: BP 146/83
[2017-02-23] MEDS: Gabapentin 300 MG Cap PO SCH (08:31)
[2017-02-23] MEDS: Aspirin 81 MG Tab.EC PO SCH (08:33)
[2017-02-23] MEDS: HYDROCHLOROTHIAZIDE PO SCH (08:33)
[2017-02-23] MEDS: Labetalol 100 MG Tab PO SCH (08:33)
[2017-02-23] MEDS: BISOPROLOL PO SCH (08:33)
--- NOTE | 2017-02-23 10:36 | PCM.DCSUM1 ---
Discharge Summary - Hospital Course Free Text/Narrative:: Mr. Guerra is a 76 y/O M admitted with low grade fever, weakness and possible Rt lower lobe Atelectasis Vs early consolidation 1. Likely Rt lower lobe community-acquired pneumonia -Treated with Ceftriaxone 1 mg IV q12 hrs and Azithromycin 500 mg IV daily Leukocytosis has resolved, patient become afebrile The patient will continue on oral antibiotic. Levofloxacin 2. Hypertension: Will continue labetalol and Ziac - Discharge Data Discharge Date: 02/23/17 Discharge Disposition: Home, Self-Care 01 Condition: Stable - Discharge Diagnosis/Problem(s) (1) Pneumonia SNOMED Code(s): 027208575 ICD Code: J18.9 - PNEUMONIA, UNSPECIFIED ORGANISM Status: Acute Current Visit: Yes Qualifiers: Pneumonia type: due to unspecified organism Laterality: bilateral Lung location: lower lobe of lung Qualified Code(s): J18.9 - Pneumonia, unspecified organism (2) Weakness SNOMED Code(s): 13846192 ICD Code: R53.1 - WEAKNESS Status: Acute Current Visit: Yes - Patient Instructions Diet: Heart Healthy Diet Activity: As Tolerated - Discharge Plan Prescriptions/Med Rec: Dextromethorphan/guaiFENesin [Robitussin DM] 5 ml PO Q8H PRN #100 ml PRN Reason: Cough Levofloxacin 500 mg PO DAILY #7 tablet Home Medications: Home Meds Bisoprolol/Hydrochlorothiazide [Ziac 5-6.25 MG] 5 - 6.25 mg PO DAILY 05/24/15 [ History] Tamsulosin [Flomax] 0.4 mg PO BEDTIME 07/26/15 [History] Gabapentin [Neurontin] 300 mg PO BID 08/07/15 [History] Labetalol [Normodyne] 100 mg PO BID 04/14/16 [History] Aspirin [Halfprin] 81 mg PO BRK 02/19/17 [History] Dextromethorphan/guaiFENesin [Robitussin DM] 5 ml PO Q8H PRN #100 ml 02/23/17 [ Rx] Levofloxacin 500 mg PO DAILY #7 tablet 02/23/17 [Rx] Patient Handouts: Community-Acquired Pneumonia, Adult, [id number] Referrals: PCP,None [Primary Care Provider] - (dr. Sosa) - Discharge Summary/Plan Comment DC Time >30 min.: No - General Info Date of Service: 02/23/17 Admission Dx/Problem (Free Text: Admitted with: pneumonia, weakness and low grade fever Subjective Update: Continues to have cough but feels better. Continues to have sputum, slept well last night No fever - Review of Systems General: Denies: Fever, Weakness Pulmonary: Denies: Shortness of Breath Cardiovascular: Denies: Chest Pain Gastrointestinal: Denies: Abdominal Pain Neurological: Denies: Confusion - Patient Data Vitals - Most Recent: Last Vital Signs Temp 36.8 C 02/23/17 07:57 Pulse 84 02/23/17 08:33 Resp 20 02/23/17 07:57 BP 146/83 H 02/23/17 08:33 Pulse Ox 98 02/23/17 07:57 Weight - Most Recent: 91.081 kg I&O - Last 24 hours: Intake & Output 02/22/17 02/23/17 02/23/17 22:59 06:59 14:59 Intake Total 540 300 240 Output Total 275 Balance 540 25 240 Med Orders - Current: Current Medications Acetaminophen (Tylenol) 650 mg PO Q4H PRN PRN Reason: Pain (mild 1-3 )/fever Last Admin: 02/22/17 21:12 Dose: 650 mg Aspirin (Halfprin) 81 mg PO BRK [facility] Last Admin: 02/23/17 08:33 Dose: 81 mg Benzocaine/Menthol (Cepacol Sore Throat) 1 lozenge MUCMEM Q6HR PRN PRN Reason: cough, sore throat Last Admin: 02/22/17 14:38 Dose: 1 lozenge Ceftriaxone Sodium (Rocephin) 2 gm IV Q24H [facility] Last Admin: 02/22/17 18:04 Dose: 2 gm Diphenhydramine HCl (Benadryl) 25 mg PO BEDTIME PRN PRN Reason: Sleep Last Admin: 02/22/17 22:13 Dose: 25 mg Docusate Sodium (Colace) 100 mg PO DAILY PRN PRN Reason: Constipation Last Admin: 02/20/17 07:56 Dose: 100 mg Gabapentin (Neurontin) 300 mg PO BID [facility] Last Admin: 02/23/17 08:31 Dose: 300 mg Guaifenesin/Phenylephrine HCl (Robitussin Dm) 5 ml PO Q8H PRN PRN Reason: Cough Last Admin: 02/22/17 14:38 Dose: 5 ml Heparin Sodium (Porcine) (Heparin Sodium) 5,000 units SUBCUT TID@0600,1400, 2200 [facility] Last Admin: 02/23/17 06:05 Dose: 5,000 units Azithromycin 500 mg/ Sodium (Chloride) 250 mls @ 250 mls/hr IV Q24H [facility] Last Admin: 02/22/17 20:57 Dose: 250 mls/hr Labetalol HCl (Normodyne) 100 mg PO BID [facility] Last Admin: 02/23/17 08:33 Dose: 100 mg Bisoprolol/Hydrochlorothiazide [Ziac 5-6.25 Mg] Own Med 0 mg PO DAILY [facility] Last Admin: 02/23/17 08:33 Dose: Not Given Pantoprazole Sodium (Protonix) 40 mg PO ACBREAKFAST [facility] Last Admin: 02/23/17 06:06 Dose: 40 mg Sodium Chloride (Saline Flush) 10 ml FLUSH ASDIRECTED PRN PRN Reason: Keep Vein Open Last Admin: 02/22/17 20:54 Dose: 10 ml Tamsulosin HCl (Flomax) 0.4 mg PO BEDTIME [facility] Last Admin: 02/22/17 21:03 Dose: 0.4 mg Discontinued Medications Diphenhydramine HCl (Benadryl) 25 mg IVPUSH ONETIME ONE Stop: 02/19/17 16:31 Last Admin: 02/19/17 16:44 Dose: 25 mg Heparin Sodium (Porcine) (Heparin Sodium) 5,000 units SUBCUT Q8H [facility] Last Admin: 02/19/17 21:27 Dose: Not Given Lactated Ringer's (Ringers, Lactated) 1,000 mls @ 200 mls/hr IV .BOLUS ONE Stop: 02/19/17 20:34 Last Infusion: 02/19/17 23:08 Dose: Infused Levofloxacin/Dextrose 500 mg/ (Premix) 100 mls @ 100 mls/hr IV ONETIME ONE Stop: 02/19/17 16:35 Last Admin: 02/19/17 16:16 Dose: 100 mls/hr Azithromycin 500 mg/ Sodium (Chloride) 250 mls @ 250 mls/hr IV ONETIME ONE Stop: 02/19/17 17:31 Last Admin: 02/19/17 17:32 Dose: 250 mls/hr Ceftriaxone Sodium 1 gm/ (Sodium Chloride) 50 mls @ 100 mls/hr IV ONETIME ONE Stop: 02/19/17 17:00 Last Admin: 02/19/17 16:46 Dose: 100 mls/hr Ipratropium [place] (Atrovent) 0.5 mg NEB ONETIME ONE Stop: 02/19/17 14:47 Last Admin: 02/19/17 15:18 Dose: 0.5 mg Labetalol HCl (Normodyne) 100 mg PO BID [facility] Last Admin: 02/20/17 08:08 Dose: Not Given Labetalol HCl (Normodyne) 150 mg PO BID [facility] Lorazepam (Ativan) 1 mg PO ONETIME ONE Stop: 02/19/17 16:48 Last Admin: 02/19/17 16:54 Dose: 1 mg - Exam Quality Assessment: Denies: Supplemental Oxygen General: Reports: Alert, Oriented Neck: Reports: Supple Lungs: Reports: Clear to Auscultation, Normal Respiratory Effort Cardiovascular: Reports: Regular Rate, Regular Rhythm GI/Abdominal Exam: Normal Bowel Sounds, Soft, Non-Tender Extremities: No Pedal Edema *Q Meaningful Use (DIS) - VTE *Q VTE Criteria *Q: - Stroke *Q Stroke Criteria *Q: - AMI *Q AMI Criteria *Q:
== END 2017-02-23 13:25 | disposition home or self-care (01) | DRG 195 ==
LOC: DL.ED 14:06 → OBSVTOIN 16:46 → UNDOADMOB 16:46 → INTOOBSV 16:46 → DL.MS 16:46 → OBSVTOIN 18:48
PROVIDERS: ADMIT Internal Medicine Nephrology; ATTEND Internal Medicine Nephrology
DX: J18.9 Pneumonia, unspecified organism (principal); R53.1 Weakness; G89.29 Other chronic pain; M54.42 Lumbago with sciatica, left side; I10 Essential (primary) hypertension; I48.91 Unspecified atrial fibrillation; Z87.01 Personal history of pneumonia (recurrent); N42.9 Disorder of prostate, unspecified; Z86.73 Personal history of transient ischemic attack (TIA), and cerebral infarction without residual deficits; M19.90 Unspecified osteoarthritis, unspecified site; H54.7 Unspecified visual loss; Z87.891 Personal history of nicotine dependence; Z88.0 Allergy status to penicillin; Z88.1 Allergy status to other antibiotic agents; Z88.8 Allergy status to other drugs, medicaments and biological substances; Z79.82 Long term (current) use of aspirin; Z79.899 Other long term (current) drug therapy
CPT/HCPCS: 36415; 71010; 80053; 81001; 83605; 85025; 87040 ×2; 87070; 87081; 87205; 87430; 87804 ×2; 94640; 96365; 96375; 99285; A9270; J0456; J0696; J1200; J1956; J7050 ×3; J7120 ×2; 80048; 99284; J1644

== ENCOUNTER 2019-12-05 08:17 | Day surgery (SDC) | payer MEDICARE, MEDICAID ==
[2019-12-05] MEDS ORDERED: Midazolam 1 MG/ML 2 ML SDV IV ONE (08:18)
[2019-12-05] MEDS ORDERED: Dexamethasone 4 MG/ML SDV IV ONE (08:18)
[2019-12-05] MEDS ORDERED: Sodium Chloride 0.9% 10 ML Syringe IV ONE (08:18)
[2019-12-05] MEDS ORDERED: Dilation Soln 1 EA EACH EYELF ONE (08:30)
[2019-12-05] MEDS ORDERED: Sodium Chloride 0.9% 10 ML Syringe FLUSH PRN (08:30)
[2019-12-05] MEDS ORDERED: Proparacaine 0.5% Ophth Soln 15 ML Bottle EYELF ONE (08:30)
[2019-12-05] MEDS ORDERED: Povidone-Iodine 5% Sterile Ophth Soln 30 ML Bottle EYELF ONE ×2 (08:30→09:43)
[2019-12-05] MEDS ORDERED: Ondansetron 4 MG/2 ML SDV IVPUSH PRN (08:30)
[2019-12-05] MEDS ORDERED: Moxifloxacin 0.5% Ophth Soln 3 ML Bottle EYELF ONE (08:30)
[2019-12-05] MEDS ORDERED: Timolol Maleate 0.5% Ophth Soln 5 ML Bottle EYELF ONE (08:30)
[2019-12-05] MEDS ORDERED: Phenylephrine 10% Ophth Soln 5 ML Bot EYELF PRN (08:30)
[2019-12-05] MEDS ORDERED: Acetaminophen 325 MG Tab PO PRN (08:30)
[2019-12-05] MEDS ORDERED: Phenylephrine 10% Ophth Soln 5 ML Bot EYELF ONE ×2 (08:30→09:42)
[2019-12-05] MEDS ORDERED: Tropicamide 1% Ophth Soln 15 ML Bottle EYELF ONE (08:30)
[2019-12-05] MEDS ORDERED: Apraclonidine 0.5% Ophth Soln 5 ML Bot EYELF ONE (09:42)
[2019-12-05] MEDS ORDERED: Diclofenac Sodium 0.1% Ophth Soln 5 ML Bottle EYELF ONE (09:42)
[2019-12-05] MEDS ORDERED: Tetracaine HCl/PF 0.5% 4 ML Bottle EYELF ONE (09:42)
[2019-12-05] MEDS ORDERED: Lidocaine 1% 30 ML SDV ONE (09:42)
[2019-12-05] MEDS ORDERED: Balanced Salt Solution Ophth Irrig 500 ML Bottle IOCULAR ONE (09:43)
[2019-12-05] MEDS ORDERED: Chondroitin Sulfate/Hyaluronate Sodium Ophth Inj 0.75 ML Syringe EYELF ONE (09:43)
[2019-12-05] MEDS ORDERED: Vancomycin 500 MG SDV EYELF ONE (09:43)
[2019-12-05 12:01] VITALS: BP 142/75; PULSE 60
--- NOTE | 2019-12-06 09:14 | OR ---
DATE: 12/05/2019 PREOPERATIVE DIAGNOSIS: Visually significant mixed cataract, left eye. POSTOPERATIVE DIAGNOSIS: Visually significant mixed cataract, left eye. PROCEDURE: Extracapsular cataract extraction with intraocular lens implant, left eye. ANESTHESIA: Topical/local MAC. COMPLICATIONS: None. INDICATION: Mr. Calixto was seen in the clinic with complaints of blurred vision. His examination reveals mixed cataract. I explained options, offered cataract surgery, and I explained risks, including, but not limited to, infection, retinal detachment, loss of vision, need for additional surgery, and risks associated with anesthesia. We discussed implant options. He requested surgery with a monofocal implant. OPERATIVE DESCRIPTION: After informed consent was obtained and the risks, benefits, and alternatives were explained, the patient was brought to the operative suite and topical anesthesia was administered. The patient was then prepped and draped in the sterile fashion and attention was placed on the left eye. A sterile lid speculum was placed into the left eye to allow operative exposure. A full-thickness paracentesis was made in the temporal portion of the operative eye. Preservative-free lidocaine 0.1 mL was injected into the anterior chamber followed by viscoelastic. A full-thickness corneal incision was then made into the anterior chamber. A bent needle cystotome was used to create a small mars in the anterior capsule. The capsulorrhexis forceps was then used to create a 360-degree curvilinear capsulorrhexis. The nucleus was then removed using a phacoemulsification handpiece and the remaining cortical material was then removed with irrigation and aspiration handpiece. Following removal of the cortical material, the capsular bag was then inspected and noted to be free of any holes or tears. Viscoelastic was then injected into the capsular bag and the intraocular lens was inserted into the capsular bag. The viscoelastic material was then removed from both the anterior and posterior chambers and from behind the IOL. The lens and capsular bag were then reinspected. The IOL was well centered and the capsular bag intact. The wound and paracentesis sites were inspected and hydrated with balanced saline solution. Both were found to be self- sealing. The intraocular pressure was assessed digitally and found to be within normal range. A good red reflex was noted at the completion of the procedure. No complications occurred during the operation. At the completion of the procedure, Maxitrol, Voltaren, and Iopidine drops were placed into the operative eye. A sterile eye shield was placed over the operative eye and the patient was transported to the postoperative recovery area having tolerated the procedure well. Postoperative instructions were given along with a postoperative appointment. The patient was advised to call with any questions or concerns. [facility] /[phone]
== END 2019-12-05 10:56 | disposition home or self-care (01) ==
LOC: DL.SDS 08:17
PROVIDERS: ATTEND Ophthalmology
DX: H25.813 Combined forms of age-related cataract, bilateral (principal); I12.9 Hypertensive chronic kidney disease with stage 1 through stage 4 chronic kidney disease, or unspecified chronic kidney disease; N18.3 Chronic kidney disease, stage 3 (moderate); Z87.891 Personal history of nicotine dependence; Z79.899 Other long term (current) drug therapy; Z88.0 Allergy status to penicillin; Z88.8 Allergy status to other drugs, medicaments and biological substances; Z88.5 Allergy status to narcotic agent; E66.9 Obesity, unspecified; Z68.28 Body mass index [BMI] 28.0-28.9, adult
CPT/HCPCS: 00142; 93005; C1780; J1100; J2001; J2250; J3370

== ENCOUNTER 2019-12-12 08:10 | Day surgery (SDC) | payer MEDICARE, MEDICAID ==
[~2019-12-12 08:10] MED LIST: Sodium Chloride 0.9% 10 ML Syringe FLUSH PRN
[2019-12-12] MEDS ORDERED: Proparacaine 0.5% Ophth Soln 15 ML Bottle EYERT ONE (08:30)
[2019-12-12] MEDS ORDERED: Povidone-Iodine 5% Sterile Ophth Soln 30 ML Bottle EYERT ONE ×2 (08:30→09:42)
[2019-12-12] MEDS ORDERED: Ondansetron 4 MG/2 ML SDV IVPUSH PRN (08:30)
[2019-12-12] MEDS ORDERED: Tropicamide 1% Ophth Soln 15 ML Bottle EYERT ONE (08:30)
[2019-12-12] MEDS ORDERED: Phenylephrine 10% Ophth Soln 5 ML Bot EYERT PRN (08:30)
[2019-12-12] MEDS ORDERED: Acetaminophen 325 MG Tab PO PRN (08:30)
[2019-12-12] MEDS ORDERED: Timolol Maleate 0.5% Ophth Soln 5 ML Bottle EYERT ONE (08:30)
[2019-12-12] MEDS ORDERED: Dilation Soln 1 EA EACH EYERT ONE (08:30)
[2019-12-12] MEDS ORDERED: Phenylephrine 10% Ophth Soln 5 ML Bot EYERT ONE (08:30)
[2019-12-12] MEDS ORDERED: Moxifloxacin 0.5% Ophth Soln 3 ML Bottle EYERT ONE (08:30)
[2019-12-12] MEDS ORDERED: Lidocaine 1% 30 ML SDV ONE (09:42)
[2019-12-12] MEDS ORDERED: Apraclonidine 0.5% Ophth Soln 5 ML Bot EYERT ONE (09:42)
[2019-12-12] MEDS ORDERED: Tetracaine HCl/PF 0.5% 4 ML Bottle EYERT ONE (09:42)
[2019-12-12] MEDS ORDERED: Diclofenac Sodium 0.1% Ophth Soln 5 ML Bottle EYERT ONE (09:43)
[2019-12-12] MEDS ORDERED: Chondroitin Sulfate/Hyaluronate Sodium Ophth Inj 0.75 ML Syringe EYERT ONE (09:43)
[2019-12-12] MEDS ORDERED: Balanced Salt Solution Ophth Irrig 500 ML Bottle IOCULAR ONE (09:43)
[2019-12-12] MEDS ORDERED: Dexamethasone/Neomycin/Polymyxin B Ophth Oint 3.5 GM Tube EYERT ONE (09:43)
[2019-12-12] MEDS ORDERED: Vancomycin 500 MG SDV EYERT ONE (09:44)
[2019-12-12 10:33] VITALS: BP 143/81; PULSE 60
--- NOTE | 2019-12-12 14:15 | OR ---
DATE: 12/12/2019 PREOPERATIVE DIAGNOSIS: Visually significant mixed cataract, right eye. POSTOPERATIVE DIAGNOSIS: Visually significant mixed cataract, right eye. PROCEDURE: Extracapsular cataract extraction with intraocular lens implant, right eye. ANESTHESIA: Topical/local MAC. COMPLICATIONS: None. INDICATION: Mr. Calixto was seen in the clinic. He is unhappy with his vision, noticing a slow progressive change. His examination reveals visually significant mixed cataract. I explained options, offered cataract surgery, and I explained risks, including, but not limited to, infection, retinal detachment, loss of vision, need for additional surgery, and risks associated with anesthesia. He is symptomatic and requested cataract surgery. He voiced an understanding with respect to risks. He has requested a monofocal implant. OPERATIVE DESCRIPTION: After informed consent was obtained and the risks, benefits, and alternatives were explained, the patient was brought to the operative suite and topical anesthesia was administered. The patient was then prepped and draped in the sterile fashion and attention was placed on the right eye. A sterile lid speculum was placed into the right eye to allow operative exposure. A full-thickness paracentesis was made in the temporal portion of the operative eye. Preservative-free lidocaine 0.1 mL was injected into the anterior chamber followed by viscoelastic. A full-thickness corneal incision was then made into the anterior chamber. A bent needle cystotome was used to create a small mars in the anterior capsule. The capsulorrhexis forceps was then used to create a 360-degree curvilinear capsulorrhexis. The nucleus was then removed using a phacoemulsification handpiece and the remaining cortical material was then removed with irrigation and aspiration handpiece. Following removal of the cortical material, the capsular bag was then inspected and noted to be free of any holes or tears. Viscoelastic was then injected into the capsular bag and the intraocular lens was inserted into the capsular bag. The viscoelastic material was then removed from both the anterior and posterior chambers and from behind the IOL. The lens and capsular bag were then reinspected. The IOL was well centered and the capsular bag intact. The wound and paracentesis sites were inspected and hydrated with balanced saline solution. Both were found to be self- sealing. The intraocular pressure was assessed digitally and found to be within normal range. A good red reflex was noted at the completion of the procedure. No complications occurred during the operation. At the completion of the procedure, Delilah Chasearen, and Iopidine drops were placed into the operative eye. A sterile eye shield was placed over the operative eye and the patient was transported to the postoperative recovery area having tolerated the procedure well. Postoperative instructions were given along with a postoperative appointment. The patient was advised to call with any questions or concerns. [facility] /[phone]
== END 2019-12-12 10:45 | disposition home or self-care (01) ==
LOC: DL.SDS 08:10
PROVIDERS: ATTEND Ophthalmology
DX: H25.813 Combined forms of age-related cataract, bilateral (principal); I48.91 Unspecified atrial fibrillation; E78.00 Pure hypercholesterolemia, unspecified; I10 Essential (primary) hypertension; Z87.891 Personal history of nicotine dependence; Z79.899 Other long term (current) drug therapy; Z88.0 Allergy status to penicillin; Z88.5 Allergy status to narcotic agent; Z88.8 Allergy status to other drugs, medicaments and biological substances; Z98.42 Cataract extraction status, left eye
CPT/HCPCS: 00142; A9270-GY; J2001; J3370; V2632

== ENCOUNTER 2020-07-28 20:20 | Emergency (ER) | payer MEDICARE, MEDICAID ==
[2020-07-28 20:56] VITALS: BP 154/94; PULSE 95
[2020-07-28 21:27] LABS: CORONAVIRUS COVID-19 NAA NEGATIVE (NEGATIVE)
[2020-07-28 21:48] LABS: ANION GAP 12.1 mEq/L (7-13); CHLORIDE,CL 101 mmol/L (98-107); SODIUM,NA 139 mmol/L (136-145)
--- NOTE | 2020-07-28 21:51 | CR ---
PROCEDURE INFORMATION: Exam: XR Chest Exam date and time: 07/28/2020 9:24 PM Age: 79 years old Clinical indication: Cough TECHNIQUE: Imaging protocol: XR of the chest. Views: 1 view. COMPARISON: CR Chest 1V Frontal 02/19/2017 3:21 PM FINDINGS: Lungs: Unremarkable. No consolidation. Pleural spaces: Unremarkable. No pleural effusion. No pneumothorax. Heart/Mediastinum: Unremarkable. No cardiomegaly. Bones/joints: Unremarkable. IMPRESSION: No acute findings.
[2020-07-28] MEDS ORDERED: Doxycycline Monohydrate 100 MG Cap PO ONE (23:01)
--- NOTE | 2020-07-28 23:14 | EDM.PDOC ---
ED HPI GENERAL MEDICAL PROBLEM - General Chief Complaint: Respiratory Problem Stated Complaint: TROUBLE BREATHING, CHEST CONGESTION,BODY ACHES Time Seen by Provider: 07/28/20 21:00 Source of Information: Reports: Patient History Limitations: Reports: No Limitations - History of Present Illness INITIAL COMMENTS - FREE TEXT/NARRATIVE: 3 day hx SOB cough, Chest tight no pain, Hx yearly pneumonia. Has had COVID vaccine. Has not been seen in clinic prior. No hx COPD, Former remote smoker. Generalized Pain Score (Numeric/FACES): 4 - Related Data Allergies Allergy/AdvReac Type Severity Reaction Status Date / Time amlodipine Allergy Other Verified 12/12/19 08:29 gemfibrozil Allergy Leg Cramps Verified 12/12/19 08:29 levofloxacin [From Levaquin] Allergy Rash and Verified 12/12/19 08:29 welts Penicillins Allergy Hives Verified 12/12/19 08:29 albuterol AdvReac Tremors Verified 12/12/19 08:29 PHENEGRAN WITH CODIENE AdvReac Other Uncoded 12/12/19 08:29 Home Meds: Home Meds Bisoprolol/Hydrochlorothiazide [Ziac 5-6.25 MG] 5 - 6.25 mg PO DAILY 05/24/15 [History] Tamsulosin [Flomax] 0.4 mg PO BEDTIME 07/26/15 [History] Gabapentin [Neurontin] 300 mg PO BEDTIME 08/07/15 [History] Labetalol [Normodyne] 100 mg PO BID 04/14/16 [History] Acetaminophen 500 mg PO DAILY PRN 02/22/18 [History] Phenylephrine HCl/[place] Butter [Preparation H Suppository] 1 supp RECTAL ASDIRECTED 03/01/18 [History] Docusate Sodium [Stool Softener] 100 mg PO ASDIRECTED 11/30/19 [History] Albuterol [Proventil Neb Soln] 2.5 mg NEB Q6HRRT PRN 12/03/19 [History] Ofloxacin [Ocuflox] 1 drop EYELF QID 12/03/19 [History] Past Medical History HEENT History: Reports: Cataract, Impaired Vision Other HEENT History: wears glasses Cardiovascular History: Reports: Afib, High Cholesterol, Hypertension, Other (See Below) Other Cardiovascular History: "occasionally have had afib". HX OF ESSENTIAL HYPERTENSION. HX OF HYPERCHOLESTEREMIA Respiratory History: Reports: Bronchitis, Recurrent, Pneumonia, Recurrent Gastrointestinal History: Reports: None Genitourinary History: Reports: Chronic Renal Insuffiency, Prostate Disorder, Other (See Below) Other Genitourinary History: acute kidney injury Musculoskeletal History: Reports: Arthritis, Back Pain, Chronic, Neck Pain, Chronic, Osteoarthritis Neurological History: Reports: CVA, Seizure, TIA Other Neuro History: MRI recently showed "bumps in neck pressing on nerves" Psychiatric History: Reports: Anxiety Endocrine/Metabolic History: Reports: None Other Endocrine/Metabolic History: HX OF ADRENAL INSUFFIENCY Hematologic History: Reports: None Immunologic History: Reports: None Oncologic (Cancer) History: Reports: None Dermatologic History: Reports: Other (See Below) Other Dermatologic History: Ichthyosis - Infectious Disease History Infectious Disease History: Reports: Chicken Pox, Measles, Meningitis, Mumps Other Infectious Disease History: bacterial Meningitis 2016 - Past Surgical History Head Surgeries/Procedures: Reports: None HEENT Surgical History: Reports: None, Cataract Surgery Cardiovascular Surgical History: Reports: None Respiratory Surgical History: Reports: None GI Surgical History: Reports: Colonoscopy Male Surgical History: Reports: Prostate Biopsy Neurological Surgical History: Reports: Other (See Below) Other Neurological Surgeries/Procedures: back surg, lumbar puncture Musculoskeletal Surgical History: Reports: Other (See Below) Other Musculoskeletal Surgeries/Procedures:: back [id number] Social & Family History - Family History Family Medical History: No Pertinent Family History Neurological: Reports: CVA - Tobacco Use Tobacco Use Status *Q: Never Tobacco User Second Hand Smoke Exposure: No - Caffeine Use Caffeine Use: Reports: None Caffeine Use Comment: 1 bottle of Coke /day - Recreational Drug Use Recreational Drug Use: No - Living Situation & Occupation Living situation: Reports: Single, Alone Occupation: Retired ED ROS GENERAL - Review of Systems Review Of Systems: See Below Constitutional: Reports: Chills, Malaise, Other (body aches) HEENT: Reports: No Symptoms Respiratory: Reports: Shortness of Breath, Cough GI/Abdominal: Reports: No Symptoms : Reports: No Symptoms Musculoskeletal: Reports: Other (general body aches) Skin: Reports: No Symptoms Neurological: Reports: No Symptoms Psychiatric: Reports: No Symptoms ED EXAM, GENERAL - Physical Exam Exam: See Below Exam Limited By: No Limitations General Appearance: Alert, Anxious, Mild Distress Eye Exam: Bilateral Eye: Conjunctival Injection (mild) Ears: Normal External Exam, Hearing Grossly Normal Nose: Normal Inspection Throat/Mouth: Normal Inspection Head: Atraumatic, Normocephalic Neck: Normal Inspection Respiratory/Chest: No Respiratory Distress, Decreased Breath Sounds, Other (oc assional loose cough non productive) Cardiovascular: Normal Peripheral Pulses, Regular Rate, Rhythm GI/Abdominal: Normal Bowel Sounds, Soft, Non-Tender Back Exam: Normal Inspection Extremities: Normal Inspection, Normal Range of Motion Psychiatric: Normal Affect, Normal Mood Skin Exam: Warm, Dry, Intact, Normal Color #2 Interpretation EKG Date: 07/28/20 Time: 21:39 Rhythm: NSR Rate (Beats/Min): 80 [place]: Normal P-Wave: Present QRS: Normal QT: Normal Comparison: NA - No Prior EKG Course - Vital Signs Last Recorded V/S: Last Vital Signs Temp 99.4 F 07/28/20 20:43 Pulse 95 07/28/20 20:43 Resp 20 07/28/20 20:43 BP 154/94 H 07/28/20 20:43 Pulse Ox 91 L 07/28/20 20:43 - Orders/Labs/Meds Labs: Laboratory Tests 07/28/20 07/28/20 07/28/20 Range/Units 20:30 21:08 21:08 WBC 7.8 (5.0-10.0) 10^3/uL RBC 4.97 (4.6-6.2) 10^6/uL Hgb 14.9 D (14.0-18.0) g/dL Hct 44.3 (40.0-54.0) % MCV 89.1 (80-100) fL MCH 30.0 (27.0-34.0) pg MCHC 33.6 (33.0-35.0) g/dL Plt Count 102 L (150-450) 10^3/uL Neut % (Auto) 81.7 H (42.2-75.2) % Lymph % (Auto) 7.0 L (20.5-50.1) % [place] % (Auto) 10.6 H (2-8) % Eos % (Auto) 0.3 L (1.0-3.0) % Baso % (Auto) 0.4 (0.0-1.0) % Sodium 139 (136-145) mmol/L Potassium 4.1 (3.5-5.1) mmol/L Chloride 101 (98-107) mmol/L Carbon Dioxide 30 (21-32) mmol/L Anion Gap 12.1 (7-13) mEq/L BUN 25 H (7-18) mg/dL Creatinine 1.87 H (0.70-1.30) mg/dL Est Cr Clr Drug Dosing 36.31 mL/min Estimated GFR (MDRD) 35 BUN/Creatinine Ratio 13.4 (No establ ref range) Glucose 123 H (70-99) mg/dL Calcium 8.1 L (8.5-10.1) mg/dL Total Bilirubin 1.4 H (0.2-1.0) mg/dL AST 21 (15-37) U/L ALT 38 (16-63) U/L Alkaline Phosphatase 84 (46-116) U/L Troponin I < 0.017 (0.000-0.056) ng/mL C-Reactive Protein 5.2 H (0.0-0.9) mg/dL Total Protein 5.8 L (6.4-8.2) g/dL Albumin 3.4 (3.4-5.0) g/dL Globulin 2.4 Albumin/Globulin Ratio 1.4 Influenza Type A RNA Negative (NEGATIVE) Influenza Type B RNA Negative (NEGATIVE) SARS-CoV-2 RNA (REGINO) Negative (NEGATIVE) Meds: Medications Discontinued Medications Generic Name Dose Route Start Last Admin Trade Name Freq PRN Reason Stop Dose Admin Albuterol Confirm 07/28/20 23:15 07/28/20 23:46 Albuterol 6.7 Gm Inhaler Administered 07/28/20 23:16 Not Given Dose 6.7 gm INH .STK-MED ONE Doxycycline Monohydrate 100 mg 07/28/20 23:01 07/28/20 23:21 Doxycycline Monohydrate 100 Mg Cap PO 07/28/20 23:02 100 mg ONETIME ONE Administration Departure - Departure Time of Disposition: 23:12 Disposition: Home, Self-Care 01 Condition: Good Clinical Impression: Bronchitis - Discharge Information *PRESCRIPTION DRUG MONITORING PROGRAM REVIEWED*: No *COPY OF PRESCRIPTION DRUG MONITORING REPORT IN PATIENT BONNIE: No Instructions: Acute Bronchitis, Adult, [id number] Referrals: Jaciel Sosa MD [Primary Care Provider] - Forms: ED Department Discharge Additional Instructions: humidifier tylenol 650mg every 4 hours as needed for discomfort clinic recheck later in week, sooner if symptoms worsen albuterol inhaler 2 puffs every 4 hours as needed for cough doxycycline 100mg one twice daily muccinex per label instructions Sepsis Event Note (ED) - Evaluation Sepsis Screening Result: No Definite Risk - Focused Exam Vital Signs: Vital Signs Temp Pulse Resp BP Pulse Ox 07/28/20 20:43 99.4 F 95 20 154/94 H 91 L
[2020-07-28] MEDS ORDERED: Albuterol 6.7 GM Inhaler INH ONE (23:15)
== END 2020-07-28 23:23 | disposition home or self-care (01) ==
LOC: DL.ED 20:20
DX: J40 Bronchitis, not specified as acute or chronic (principal); I12.9 Hypertensive chronic kidney disease with stage 1 through stage 4 chronic kidney disease, or unspecified chronic kidney disease; N18.9 Chronic kidney disease, unspecified; Z88.0 Allergy status to penicillin; Z88.5 Allergy status to narcotic agent; Z88.1 Allergy status to other antibiotic agents; Z88.8 Allergy status to other drugs, medicaments and biological substances; Z20.822 Contact with and (suspected) exposure to COVID-19
CPT/HCPCS: 0240U; 36415; 71045; 80053; 84484; 85025; 86140; 93005; 93010; 99283; 99285-25; A9270-GY

== ENCOUNTER 2020-07-29 21:52 | Inpatient (IN) | payer MEDICARE, MEDICAID ==
[2020-07-29 23:36] LABS: ANION GAP 14.4 mEq/L (7-13); CHLORIDE,CL 101 mmol/L (98-107); SODIUM,NA 139 mmol/L (136-145)
--- NOTE | 2020-07-30 00:44 | CR ---
PROCEDURE INFORMATION: Exam: XR Chest Exam date and time: 07/30/2020 12:17 AM Age: 79 years old Clinical indication: Cough and shortness of breath; Additional info: SOB cough TECHNIQUE: Imaging protocol: XR of the chest. Views: 2 views. Total images: 2 COMPARISON: CR Chest 1V Frontal 07/28/2020 9:24 PM FINDINGS: Lungs: Unremarkable. No consolidation. Pleural spaces: Unremarkable. No pleural effusion. No pneumothorax. Heart/Mediastinum: Unremarkable. No cardiomegaly. Bones/joints: Unremarkable. IMPRESSION: No acute findings.
[2020-07-30] MEDS ORDERED: Acetaminophen 500 MG Tab PO ONE (00:50)
[2020-07-30] MEDS ORDERED: cefTRIAXone 1 GM in Sodium Chloride 0.9% 50 ML IV ONE (00:54)
--- NOTE | 2020-07-30 01:14 | EDM.PDOC ---
ED HPI GENERAL MEDICAL PROBLEM - General Chief Complaint: Respiratory Problem Stated Complaint: RESPIRATORY / FEVER /HAD COVID SHOTS Time Seen by Provider: 07/29/20 22:30 Source of Information: Reports: Patient, Family History Limitations: Reports: No Limitations - History of Present Illness INITIAL COMMENTS - FREE TEXT/NARRATIVE: ED with family with c/o SOB and weakness. Patient seen last night with same. Tonight fever chills at home. No chest pain. Cough yellow sputum at times. Body aches yesterday. Prior COVID test last jessy negative. No exposure. Lives in assisted living. Family reported patient weak requiring assistance to tx. Remote hx meningitis with some residual weakness but not this extent. Appetite poor. No nausea or vomiting. Voiding without difficulty. - Related Data Allergies Allergy/AdvReac Type Severity Reaction Status Date / Time amlodipine Allergy Other Verified 07/30/20 02:44 gemfibrozil Allergy Leg Cramps Verified 07/30/20 02:44 levofloxacin [From Levaquin] Allergy Rash and Verified 07/30/20 02:44 welts Penicillins Allergy Hives Verified 07/30/20 02:44 albuterol AdvReac Tremors Verified 07/30/20 02:44 PHENEGRAN WITH CODIENE AdvReac Other Uncoded 07/30/20 02:44 Home Meds: Home Meds Bisoprolol/Hydrochlorothiazide [Ziac 5-6.25 MG] 5 - 6.25 mg PO DAILY 05/24/15 [History] Tamsulosin [Flomax] 0.4 mg PO BEDTIME 07/26/15 [History] Gabapentin [Neurontin] 300 mg PO BEDTIME 08/07/15 [History] Labetalol [Normodyne] 100 mg PO BID 04/14/16 [History] Acetaminophen 500 mg PO DAILY PRN 02/22/18 [History] Phenylephrine HCl/[place] Butter [Preparation H Suppository] 1 supp RECTAL ASDIRECTED 03/01/18 [History] Docusate Sodium [Stool Softener] 100 mg PO ASDIRECTED 11/30/19 [History] Albuterol [Proventil Neb Soln] 2.5 mg NEB Q6HRRT PRN 12/03/19 [History] Past Medical History HEENT History: Reports: Cataract, Impaired Vision Other HEENT History: wears glasses Cardiovascular History: Reports: Afib, High Cholesterol, Hypertension, Other (See Below) Other Cardiovascular History: "occasionally have had afib". HX OF ESSENTIAL HYPERTENSION. HX OF HYPERCHOLESTEREMIA Respiratory History: Reports: Bronchitis, Recurrent, Pneumonia, Recurrent Gastrointestinal History: Reports: None Genitourinary History: Reports: Chronic Renal Insuffiency, Prostate Disorder, Other (See Below) Other Genitourinary History: acute kidney injury Musculoskeletal History: Reports: Arthritis, Back Pain, Chronic, Neck Pain, Chronic, Osteoarthritis Neurological History: Reports: CVA, Seizure, TIA Other Neuro History: MRI recently showed "bumps in neck pressing on nerves" Psychiatric History: Reports: Anxiety Endocrine/Metabolic History: Reports: None Other Endocrine/Metabolic History: HX OF ADRENAL INSUFFIENCY Hematologic History: Reports: None Immunologic History: Reports: None Oncologic (Cancer) History: Reports: None Dermatologic History: Reports: Other (See Below) Other Dermatologic History: Ichthyosis - Infectious Disease History Infectious Disease History: Reports: Chicken Pox, Measles, Meningitis, Mumps Other Infectious Disease History: bacterial Meningitis 2016 - Past Surgical History Head Surgeries/Procedures: Reports: None HEENT Surgical History: Reports: None, Cataract Surgery Cardiovascular Surgical History: Reports: None Respiratory Surgical History: Reports: None GI Surgical History: Reports: Colonoscopy Male Surgical History: Reports: Prostate Biopsy Neurological Surgical History: Reports: Other (See Below) Other Neurological Surgeries/Procedures: back surg, lumbar puncture Musculoskeletal Surgical History: Reports: Other (See Below) Other Musculoskeletal Surgeries/Procedures:: back [id number] Social & Family History - Family History Family Medical History: No Pertinent Family History Neurological: Reports: CVA - Tobacco Use Tobacco Use Status *Q: Never Tobacco User - Caffeine Use Caffeine Use: Reports: None Caffeine Use Comment: 1 bottle of Coke /day - Recreational Drug Use Recreational Drug Use: No - Living Situation & Occupation Living situation: Reports: Single, Alone Occupation: Retired ED ROS GENERAL - Review of Systems Review Of Systems: Comprehensive ROS is negative, except as noted in HPI. ED EXAM, GENERAL - Physical Exam Exam: See Below Exam Limited By: No Limitations General Appearance: Alert, Anxious, Mild Distress, Other (shakey with erertion, assistance to reposition.) Eye Exam: Bilateral Eye: EOMI Ears: Normal External Exam, Normal TMs, Hearing Loss Nose: Normal Inspection Throat/Mouth: Normal Inspection Head: Atraumatic, Normocephalic Neck: Normal Inspection Respiratory/Chest: Decreased Breath Sounds, Other (bronchial cough ) Cardiovascular: Normal Peripheral Pulses, Regular Rate, Rhythm GI/Abdominal: Normal Bowel Sounds, Soft Extremities: Normal Inspection, Normal Range of Motion Neurological: Alert, Oriented, Normal Cognition Psychiatric: Anxious Skin Exam: Warm, Dry Course - Vital Signs Last Recorded V/S: Last Vital Signs Temp 97.7 F 07/31/20 03:45 Pulse 68 07/31/20 03:45 Resp 20 07/31/20 03:45 BP 135/80 07/31/20 03:45 Pulse Ox 97 07/31/20 03:46 - Orders/Labs/Meds Orders: Medication Orders Acetaminophen (Acetaminophen 325 Mg Tab) 650 mg PO Q4H PRN PRN Reason: Pain (Mild 1-3)/fever Albuterol (Albuterol 0.083% 2.5 Mg/3 Ml Neb Soln) 2.5 mg INH Q6HRRT PRN PRN Reason: Wheezing Albuterol/Ipratropium (Albuterol/Ipratropium 3.0-0.5 Mg/3 Ml Neb Soln) 3 ml NEB Q4HRRT [facility] Last Admin: 07/31/20 03:46 Dose: Not Given Documented by: Admin: 07/30/20 23:06 Dose: Not Given Documented by: Admin: 07/30/20 18:47 Dose: 3 ml Documented by: Admin: 07/30/20 16:01 Dose: 3 ml Documented by: Admin: 07/30/20 11:45 Dose: 3 ml Documented by: Admin: 07/30/20 07:45 Dose: 3 ml Documented by: STEPHEN Doxycycline Monohydrate (Doxycycline Monohydrate 100 Mg Cap) 100 mg PO BID [facility] Last Admin: 07/30/20 23:02 Dose: 100 mg Documented by: Admin: 07/30/20 08:38 Dose: 100 mg Documented by: Admin: 07/30/20 03:35 Dose: 100 mg Documented by: MAYRA Gabapentin (Gabapentin 300 Mg Cap) 300 mg PO BEDTIME [facility] Last Admin: 07/30/20 23:01 Dose: 300 mg Documented by: FORTUNATO Heparin Sodium (Porcine) (Heparin Sodium 5,000 Units/Ml Vial) 5,000 units SUBCUT Q12HR [facility] Last Admin: 07/30/20 23:07 Dose: 5,000 units Documented by: Admin: 07/30/20 08:39 Dose: 5,000 units Documented by: SOCORRO Sodium Chloride (Normal Saline) 1,000 mls @ 75 mls/hr IV ASDIRECTED [facility] Last Admin: 07/31/20 05:24 Dose: 75 mls/hr Documented by: Infusion: 07/31/20 05:24 Dose: 75 mls/hr Documented by: Admin: 07/30/20 16:50 Dose: 75 mls/hr Documented by: Infusion: 07/30/20 16:50 Dose: 75 mls/hr Documented by: Admin: 07/30/20 03:35 Dose: 75 mls/hr Documented by: MAYRA Labetalol HCl (Labetalol 100 Mg Tab) 100 mg PO BID [facility] Last Admin: 07/30/20 23:02 Dose: 100 mg Documented by: Admin: 07/30/20 08:38 Dose: 100 mg Documented by: SOCORRO Methylprednisolone Sodium Succinate (Methylprednisolone Sodium Succinate 40 Mg/1 Ml Sdv) 40 mg IVPUSH Q8H [facility] Last Admin: 07/31/20 05:26 Dose: 40 mg Documented by: Admin: 07/30/20 23:04 Dose: 40 mg Documented by: Admin: 07/30/20 12:25 Dose: 40 mg Documented by: SOCORRO Ondansetron HCl (Ondansetron 4 Mg/2 Ml Sdv) 4 mg IVPUSH Q4H PRN PRN Reason: Nausea/Vomiting Pantoprazole Sodium (Pantoprazole 40 Mg Tab.Cr) 40 mg PO ACBREAKFAST [facility] Last Admin: 07/31/20 05:28 Dose: 40 mg Documented by: Admin: 07/30/20 06:09 Dose: 40 mg Documented by: MAYRA Sodium Chloride (Sodium Chloride 0.9% 10 Ml Syringe) 10 ml FLUSH ASDIRECTED PRN PRN Reason: Keep Vein Open Tamsulosin HCl (Tamsulosin 0.4 Mg Cap.Er) 0.4 mg PO BEDTIME [facility] Last Admin: 07/30/20 23:02 Dose: 0.4 mg Documented by: FORTUNATO Labs: Laboratory Tests 07/29/20 07/29/20 07/29/20 Range/Units 22:59 22:59 22:59 WBC 10.0 (5.0-10.0) 10^3/uL RBC 4.99 (4.6-6.2) 10^6/uL Hgb 15.1 (14.0-18.0) g/dL Hct 44.3 (40.0-54.0) % MCV 88.8 (80-100) fL MCH 30.3 (27.0-34.0) pg MCHC 34.1 (33.0-35.0) g/dL Plt Count 104 L (150-450) 10^3/uL Neut % (Auto) 83.3 H (42.2-75.2) % Lymph % (Auto) 5.6 L (20.5-50.1) % [place] % (Auto) 10.6 H (2-8) % Eos % (Auto) 0.2 L (1.0-3.0) % Baso % (Auto) 0.3 (0.0-1.0) % D-Dimer, Quantitative 174 (0-400) ng/mL Sodium 139 (136-145) mmol/L Potassium 4.4 (3.5-5.1) mmol/L Chloride 101 (98-107) mmol/L Carbon Dioxide 28 (21-32) mmol/L Anion Gap 14.4 H (7-13) mEq/L BUN 35 H (7-18) mg/dL Creatinine 2.09 H (0.70-1.30) mg/dL Est Cr Clr Drug Dosing 32.49 mL/min Estimated GFR (MDRD) 31 BUN/Creatinine Ratio 16.7 (No establ ref range) Glucose 106 H (70-99) mg/dL Lactic Acid (0.4-2.0) mmol/L Calcium 8.3 L (8.5-10.1) mg/dL Total Bilirubin 2.0 H (0.2-1.0) mg/dL AST 21 (15-37) U/L ALT 36 (16-63) U/L Alkaline Phosphatase 83 (46-116) U/L Troponin I < 0.017 (0.000-0.056) ng/mL C-Reactive Protein 8.6 H (0.0-0.9) mg/dL B-Natriuretic Peptide 22 (0-100) pg/ml Total Protein 6.2 L (6.4-8.2) g/dL Albumin 3.6 (3.4-5.0) g/dL Globulin 2.6 Albumin/Globulin Ratio 1.4 Urine Color (YELLOW) Urine Appearance (CLEAR) Urine pH (5.0-9.0) Ur Specific [place] (1.005-1.030) Urine Protein (NEGATIVE) Urine Glucose (UA) (NEGATIVE) Urine Ketones (NEGATIVE) Urine Occult Blood (NEGATIVE) Urine Nitrite (NEGATIVE) Urine Bilirubin (NEGATIVE) Urine Urobilinogen (0.2-1.0) mg/dL Ur Leukocyte Esterase (NEGATIVE) U Hyaline Cast (Auto) Urine RBC /HPF Urine WBC (0-5/HPF) /HPF Ur Epithelial Cells (NOT SEEN) /HPF Amorphous Sediment (NOT SEEN) /HPF Urine Bacteria (0-FEW/HPF) /HPF Fine Granular Casts (NOT SEEN) /LPF Urine Mucus (NOT SEEN) /LPF 07/29/20 07/30/20 Range/Units 22:59 00:59 WBC (5.0-10.0) 10^3/uL RBC (4.6-6.2) 10^6/uL Hgb (14.0-18.0) g/dL Hct (40.0-54.0) % MCV (80-100) fL MCH (27.0-34.0) pg MCHC (33.0-35.0) g/dL Plt Count (150-450) 10^3/uL Neut % (Auto) (42.2-75.2) % Lymph % (Auto) (20.5-50.1) % [place] % (Auto) (2-8) % Eos % (Auto) (1.0-3.0) % Baso % (Auto) (0.0-1.0) % D-Dimer, Quantitative (0-400) ng/mL Sodium (136-145) mmol/L Potassium (3.5-5.1) mmol/L Chloride (98-107) mmol/L Carbon Dioxide (21-32) mmol/L Anion Gap (7-13) mEq/L BUN (7-18) mg/dL Creatinine (0.70-1.30) mg/dL Est Cr Clr Drug Dosing mL/min Estimated GFR (MDRD) BUN/Creatinine Ratio (No establ ref range) Glucose (70-99) mg/dL Lactic Acid 0.9 (0.4-2.0) mmol/L Calcium (8.5-10.1) mg/dL Total Bilirubin (0.2-1.0) mg/dL AST (15-37) U/L ALT (16-63) U/L Alkaline Phosphatase (46-116) U/L Troponin I (0.000-0.056) ng/mL C-Reactive Protein (0.0-0.9) mg/dL B-Natriuretic Peptide (0-100) pg/ml Total Protein (6.4-8.2) g/dL Albumin (3.4-5.0) g/dL Globulin Albumin/Globulin Ratio Urine Color Yellow (YELLOW) Urine Appearance Slightly cloudy (CLEAR) Urine pH 5.0 (5.0-9.0) Ur Specific [place] 1.025 (1.005-1.030) Urine Protein 100 H (NEGATIVE) Urine Glucose (UA) Negative (NEGATIVE) Urine Ketones Negative (NEGATIVE) Urine Occult Blood Trace-intact H (NEGATIVE) Urine Nitrite Negative (NEGATIVE) Urine Bilirubin Negative (NEGATIVE) Urine Urobilinogen 0.2 (0.2-1.0) mg/dL Ur Leukocyte Esterase Negative (NEGATIVE) U Hyaline Cast (Auto) Occasional Urine RBC 0-5 /HPF Urine WBC 0-5 (0-5/HPF) /HPF Ur Epithelial Cells Rare (NOT SEEN) /HPF Amorphous Sediment Few (NOT SEEN) /HPF Urine Bacteria Rare (0-FEW/HPF) /HPF Fine Granular Casts Few H (NOT SEEN) /LPF Urine Mucus Few H (NOT SEEN) /LPF Meds: Medications Generic Name Dose Route Start Last Admin Trade Name Freq PRN Reason Stop Dose Admin Acetaminophen 650 mg 07/30/20 03:03 Acetaminophen 325 Mg Tab PO Q4H PRN Pain (Mild 1-3)/fever Albuterol 2.5 mg 07/30/20 03:04 Albuterol 0.083% 2.5 Mg/3 Ml Neb Soln INH Q6HRRT PRN Wheezing Albuterol/Ipratropium 3 ml 07/30/20 07:00 07/31/20 03:46 Albuterol/Ipratropium 3.0-0.5 Mg/3 Ml Neb Soln NEB Not Given Q4HRRT SANDRA Doxycycline Monohydrate 100 mg 07/30/20 03:15 07/30/20 23:02 Doxycycline Monohydrate 100 Mg Cap PO 100 mg BID SANDRA Administration Gabapentin 300 mg 07/30/20 21:00 07/30/20 23:01 Gabapentin 300 Mg Cap PO 300 mg BEDTIME SANDRA Administration Heparin Sodium (Porcine) 5,000 units 07/30/20 09:00 07/30/20 23:07 Heparin Sodium 5,000 Units/Ml Vial SUBCUT 5,000 units Q12HR SANDRA Administration Sodium Chloride 1,000 mls @ 75 mls/hr 07/30/20 03:15 07/31/20 05:24 Normal Saline IV 75 mls/hr ASDIRECTED SANDRA Administration Labetalol HCl 100 mg 07/30/20 09:00 07/30/20 23:02 Labetalol 100 Mg Tab PO 100 mg BID SANDRA Administration Methylprednisolone Sodium Succinate 40 mg 07/30/20 12:00 07/31/20 05:26 Methylprednisolone Sodium Succinate 40 Mg/1 Ml Sdv IVPUSH 40 mg Q8H SANDRA Administration Ondansetron HCl 4 mg 07/30/20 03:03 Ondansetron 4 Mg/2 Ml Sdv IVPUSH Q4H PRN Nausea/Vomiting Pantoprazole Sodium 40 mg 07/30/20 06:00 07/31/20 05:28 Pantoprazole 40 Mg Tab.Cr PO 40 mg ACBREAKFAST SANDRA Administration Sodium Chloride 10 ml 07/30/20 03:03 Sodium Chloride 0.9% 10 Ml Syringe FLUSH ASDIRECTED PRN Keep Vein Open Tamsulosin HCl 0.4 mg 07/30/20 21:00 07/30/20 23:02 Tamsulosin 0.4 Mg Cap.Er PO 0.4 mg BEDTIME SANDRA Administration Discontinued Medications Generic Name Dose Route Start Last Admin Trade Name Freq PRN Reason Stop Dose Admin Acetaminophen 500 mg 07/30/20 00:50 07/30/20 01:11 Acetaminophen 500 Mg Tab PO 07/30/20 00:51 500 mg ONETIME ONE Administration Ceftriaxone Sodium 1 gm/ 50 mls @ 100 mls/hr 07/30/20 00:54 07/30/20 01:12 Sodium Chloride IV 07/30/20 01:23 100 mls/hr ONETIME ONE Administration Methylprednisolone Sodium Succinate 40 mg 07/30/20 03:30 07/30/20 03:35 Methylprednisolone Sodium Succinate 40 Mg/1 Ml Sdv IVPUSH 07/30/20 03:31 40 mg NOW ONE Administration - Re-Assessments/Exams Free Text/Narrative Re-Assessment/Exam: 07/30/20 01:14 SOB improved with oxygen. Departure - Departure Time of Disposition: 01:47 Disposition: Admitted As Inpatient 68 Condition: Good Clinical Impression: Dyspnea, Weakness - Discharge Information *PRESCRIPTION DRUG MONITORING PROGRAM REVIEWED*: No *COPY OF PRESCRIPTION DRUG MONITORING REPORT IN PATIENT BONNIE: No Sepsis Event Note (ED) - Evaluation Sepsis Screening Result: Possible Sepsis Risk
[2020-07-30] MEDS ORDERED: Sodium Chloride 0.9% 10 ML Syringe FLUSH PRN (03:03)
[2020-07-30] MEDS ORDERED: Acetaminophen 325 MG Tab PO PRN (03:03)
[2020-07-30] MEDS ORDERED: Ondansetron 4 MG/2 ML SDV IVPUSH PRN (03:03)
[2020-07-30] MEDS ORDERED: Albuterol 0.083% 2.5 MG/3 ML Neb Soln INH PRN (03:04)
--- NOTE | 2020-07-30 03:13 | PCM.SN.2 ---
- Free Text/Narrative Note: START OF DOCTOR EMAMIS HISTORY AND PHYSICAL / CONSULTATION NOTE Chief Complaint: Shortness of breath History of Present Illness: The patient pleasant 9-year-old male who presents to [facility]. He states dyspnea started proximately 40 hours prior to hospitalization. He states it was of gradual onset and has progressively worsened. He admits to onset of fever, rigors as well as cough which is nonproductive. He denies nausea, vomiting, wheeze, abdominal pain, diarrhea, myalgia, chest pain, peripheral edema, anosmia, dysgeusia. He presents for further evaluation Surgical History: Bilateral cataract surgery, back surgery, ventriculostomy Family History: Stroke, hypertension, hyperlipidemia Social History: Tobacco: Former smoker Alcohol: Denies Caffeine: Cola Drugs: Never Allergies: Norvasc, gemfibrozil, Phenergan with codeine. Patient has documented allergy to albuterol which he denies and in fact he takes it at home without any issue Code Status: Full Pertinent Laboratory Results / Pertinent Radiology Results / Pertinent Diagnostic Results / Pertinent Vital Signs: Blood pressure 116/75, pulse 120, respirations 22, temperature 9 9 degrees, 9 7% on 2 L, creatinine 2.09, bilirubin is 2, platelet count 104,000 Physical Examination: General: -Alert -No acute distress -No dyspnea -No tachypnea Head: -Atraumatic -Normocephalic Eyes: -Pupils equally round and reactive to light and accommodation -Extraocular muscles intact Neurological: -Cranial nerves II-XII intact Neck: -No jugular venous distention -No thyromegaly -No cervical lymphadenopathy Heart: -Regular rate -Regular rhythm -No murmurs -No gallops -No rubs Lungs: -No wheeze -No rhonchi -No rales Abdomen: -Normal bowel sounds in all four quadrants -No rebound -No guarding -No tenderness Extremities: -2/4 pulse in all four extremities -No clubbing -No cyanosis -No edema -No calf tenderness present bilaterally -Negative Homans sign bilaterally Musculoskeletal: -5/5 bilateral upper extremity strength -5/5 bilateral lower extremity strength -Sensorium of bilateral upper extremities are equal and intact -Sensorium of bilateral lower extremities are equal and intact Additional Details / Additional Findings / Exceptions / Miscellaneous: Assessment / Plan: Acute on chronic bronchitis. Solu-Medrol 40 mg IV every 8 hours plus DuoNeb every 4 hours plus doxycycline 100 mg p.o. twice daily Hyperbilirubinemia, chronic. Will monitor LFTs periodically with CMP Acute on chronic kidney disease. Baseline creatinine approximate 1.9. Will monitor creatinine level intermittently. IV normal saline at 75 mL's per hour Thrombocytopenia. We will monitor platelet count intermittently Chronic pain Degenerative disc disease Neuropathy. Gabapentin 300 mg p.o. nightly Spinal stenosis Muscle spasm Constipation BPH. Flomax 0.4 mg p.o. daily GERD. Protonix 40 mg p.o. daily Hyperlipidemia Hypertension. Labetalol 100 mg p.o. twice daily Proximal atrial fibrillation. Labetalol 100 mg p.o. twice daily Chronic pain Osteoarthritis History of CVA/TIA History of seizure Anxiety History of Nikolai's disease Diverticulosis History of cholelithiasis Ichthyosis DVT prophylaxis. Heparin 5000 units subcutaneously every 12 hours Disposition: Anticipate discharge within 24 to 36 hours END OF DOCTOR EMAMIS HISTORY AND PHYSICAL / CONSULTATION NOTE
[2020-07-30] MEDS ORDERED: methylPREDNISolone Sodium Succinate 40 MG/1 ML SDV IVPUSH ONE (03:30)
[2020-07-30] MEDS: Doxycycline Monohydrate 100 MG Cap PO SCH ×3 (03:35→23:02)
[2020-07-30] MEDS: Sodium Chloride 0.9% 1,000 ML IV SCH ×2 (03:35→16:50)
[2020-07-30] MEDS: Pantoprazole 40 MG Tab.CR PO SCH (06:09)
[2020-07-30] MEDS: Albuterol/Ipratropium 3.0-0.5 MG/3 ML Neb Soln NEB SCH ×5 (07:45→23:06)
--- NOTE | 2020-07-30 08:05 | PCM.SN.2 ---
- Free Text/Narrative Note: START OF DOCTOR EMAMIS PROGRESS NOTE Subjective: The patient currently rates his respiratory status as a 6 out of 10 at times his baseline. He states that his breathing has improved minimally compared to my recent encounter with him upon admission. He denies fever, rigors, nausea, vomiting, wheeze, abdominal pain, chest pain. He states that he has occasional cough which is nonproductive. I explained to the patient his current medical condition and plan of care and I have answered all of his questions Objective: General: -Alert -No acute distress -No dyspnea -No tachypnea Heart: -Regular rate -Regular rhythm -No murmurs -No gallops -No rubs Lungs: -No wheeze -No rhonchi -No rales Abdomen: -Normal bowel sounds in all four quadrants -No rebound -No guarding -No tenderness Extremities: -2/4 pulse in all four extremities -No clubbing -No cyanosis -No edema Additional Details / Additional Findings / Exceptions / Miscellaneous: Pertinent Laboratory Results / Pertinent Radiology Results / Pertinent Diagnostic Results / Pertinent Vital Signs: Patient saturating 96% on 2 L Assessment / Plan: Acute on chronic bronchitis. Solu-Medrol 40 mg IV every 8 hours plus DuoNeb every 4 hours plus doxycycline 100 mg p.o. twice daily Hyperbilirubinemia, chronic. Will monitor LFTs periodically with CMP Acute on chronic kidney disease. Baseline creatinine approximate 1.9. Will monitor creatinine level intermittently. IV normal saline at 75 mL's per hour Thrombocytopenia. We will monitor platelet count intermittently Chronic pain Degenerative disc disease Neuropathy. Gabapentin 300 mg p.o. nightly Spinal stenosis Muscle spasm Constipation BPH. Flomax 0.4 mg p.o. daily GERD. Protonix 40 mg p.o. daily Hyperlipidemia Hypertension. Labetalol 100 mg p.o. twice daily Proximal atrial fibrillation. Labetalol 100 mg p.o. twice daily Chronic pain Osteoarthritis History of CVA/TIA History of seizure Anxiety History of Nikolai's disease Diverticulosis History of cholelithiasis Ichthyosis DVT prophylaxis. Heparin 5000 units subcutaneously every 12 hours Disposition: END OF DOCTOR EMAMIS PROGRESS NOTE
[2020-07-30] MEDS: Labetalol 100 MG Tab PO SCH ×2 (08:38→23:02)
[2020-07-30] MEDS: Heparin Sodium 5,000 Units/ML Vial SUBCUT SCH ×2 (08:39→23:07)
[2020-07-30] MEDS: methylPREDNISolone Sodium Succinate 40 MG/1 ML SDV IVPUSH SCH ×2 (12:25→23:04)
[2020-07-30 12:51] LABS: ANION GAP 13.7 mEq/L (7-13)
[2020-07-30] MEDS ORDERED: Tamsulosin 0.4 MG Cap.ER PO SCH (21:00)
[2020-07-30] MEDS ORDERED: Gabapentin 300 MG Cap PO SCH (21:00)
[2020-07-31] MEDS: Albuterol/Ipratropium 3.0-0.5 MG/3 ML Neb Soln NEB SCH ×3 (03:46→12:44)
[2020-07-31] MEDS: Sodium Chloride 0.9% 1,000 ML IV SCH (05:24)
[2020-07-31] MEDS: methylPREDNISolone Sodium Succinate 40 MG/1 ML SDV IVPUSH SCH ×2 (05:26→12:45)
[2020-07-31] MEDS: Pantoprazole 40 MG Tab.CR PO SCH (05:28)
[2020-07-31 06:48] LABS: ANION GAP 14.1 mEq/L (7-13)
[2020-07-31] MEDS ORDERED: Calcium Gluconate 10% 1 GM/10 ML SDV IVPUSH ONE (07:48)
--- NOTE | 2020-07-31 07:59 | PCM.SN.2 ---
- Free Text/Narrative Note: START OF DOCTOR EMAMIS DISCHARGE SUMMARY Date of Admission: July 30, 2020 Date of Discharge: 7:57 AM on July 31, 2020 Primary Diagnosis: Acute on chronic bronchitis Secondary Diagnosis: Hyperbilirubinemia, chronic Acute on chronic kidney disease, baseline creatinine approximately 1.9 Thrombocytopenia Chronic pain Degenerative disc disease Neuropathy Spinal stenosis Muscle spasm Constipation BPH GERD Hyperlipidemia Hypertension Paroxysmal atrial fibrillation Chronic pain Osteoarthritis History of CVA/TIA History of seizure Anxiety History of Mccreary's disease Diverticulosis History of cholelithiasis Ichthyosis Hypercalcemia, status post treatment Consultations: None Condition on Discharge: Stable Disposition: The patient is advised to follow-up with his primary care physician or provider 3 to 5 days post discharge for posthospitalization evaluation The patient is advised to follow-up with nephrology within 1 month of discharge for his history of chronic kidney disease Discharge Medications: Flomax 0.4 mg p.o. daily Prednisone 10 mg p.o.: 4 tabs daily x3 days then 3 tabs daily x3 days then 2 tabs daily x3 days then 1 tab daily x3 days. Quantity sufficient. 0 refills Labetalol 100 mg p.o. twice daily Gabapentin 300 mg p.o. nightly Doxycycline 100 mg p.o. twice daily. Quantity 12. 0 refills Albuterol 2.5 mg nebulized every 6 hours as needed shortness of breath or wheeze Protonix 40 mg p.o. daily. Quantity 15. 0 refills END OF DOCTOR EMAMIS DISCHARGE SUMMARY
[2020-07-31] MEDS: Labetalol 100 MG Tab PO SCH (08:05)
[2020-07-31] MEDS: Doxycycline Monohydrate 100 MG Cap PO SCH (08:05)
[2020-07-31] MEDS: Heparin Sodium 5,000 Units/ML Vial SUBCUT SCH (08:07)
[2020-07-31 12:35] VITALS: BP 161/86; PULSE 80
== END 2020-07-31 14:30 | disposition home or self-care (01) | DRG 202 ==
LOC: DL.ED 21:52 → DL.MS 07-30 01:47
PROVIDERS: ADMIT Internal Medicine; ATTEND Internal Medicine
DX: R53.1 Weakness (principal); R09.2 Respiratory arrest; J20.9 Acute bronchitis, unspecified; I48.91 Unspecified atrial fibrillation; N17.9 Acute kidney failure, unspecified; J42 Unspecified chronic bronchitis; D69.6 Thrombocytopenia, unspecified; G89.29 Other chronic pain; E80.6 Other disorders of bilirubin metabolism; N18.9 Chronic kidney disease, unspecified; M62.838 Other muscle spasm; N40.0 Benign prostatic hyperplasia without lower urinary tract symptoms; K59.00 Constipation, unspecified; N42.9 Disorder of prostate, unspecified; K21.9 Gastro-esophageal reflux disease without esophagitis; I48.0 Paroxysmal atrial fibrillation; M19.90 Unspecified osteoarthritis, unspecified site; F41.9 Anxiety disorder, unspecified; K57.90 Diverticulosis of intestine, part unspecified, without perforation or abscess without bleeding; E83.52 Hypercalcemia; E78.5 Hyperlipidemia, unspecified; G62.9 Polyneuropathy, unspecified; H54.7 Unspecified visual loss; E78.00 Pure hypercholesterolemia, unspecified; I12.9 Hypertensive chronic kidney disease with stage 1 through stage 4 chronic kidney disease, or unspecified chronic kidney disease; M54.2 Cervicalgia; M54.9 Dorsalgia, unspecified; Z86.73 Personal history of transient ischemic attack (TIA), and cerebral infarction without residual deficits; Q80.9 Congenital ichthyosis, unspecified; Z88.0 Allergy status to penicillin; Z88.1 Allergy status to other antibiotic agents; Z88.8 Allergy status to other drugs, medicaments and biological substances; Z79.899 Other long term (current) drug therapy; Z98.49 Cataract extraction status, unspecified eye; Z88.5 Allergy status to narcotic agent
CPT/HCPCS: 36415; 71046; 80053; 81001; 83605; 83880; 84484; 85025; 85379; 86140; 87040; A9270; J0696; 80048; 83735; 83970; 84100; 94640; J0610; J1644; J2920; J7030; J7620-GY

== ENCOUNTER 2020-10-27 07:27 | Day surgery (SDC) | payer MEDICARE, MEDICAID ==
[~2020-10-27 07:27] MED LIST changes: +Midazolam 1 MG/ML 2 ML SDV ONE; -Sodium Chloride 0.9% 10 ML Syringe FLUSH PRN; +fentaNYL 100 MCG/2 ML SDV ONE
[2020-10-27] MEDS ORDERED: Midazolam 1 MG/ML 2 ML SDV IV ONE ×3 (07:28→09:15)
[2020-10-27] MEDS ORDERED: fentaNYL 100 MCG/2 ML SDV IV ONE ×3 (07:28→09:14)
[2020-10-27] MEDS ORDERED: Dextrose 5%-0.45% NaCl 1,000 ML IV SCH (07:30)
--- NOTE | 2020-10-27 10:38 | OR ---
DATE: 10/27/2020 PROCEDURE DONE: Esophageal dilatation. INSTRUMENT USED: Nguyen bougie dilator, [place] size 48. PREMEDICATIONS: Done after esophagogastroduodenoscopy. INDICATIONS: Peptic esophageal stricture. PROCEDURE IN DETAIL: Esophageal dilatation was done with ease using [place] size 48 dilator. No blood was noted at the dilated tip after completion. IMPRESSION: Peptic esophageal stricture. The patient tolerated the procedure well. [facility] /[id number]
--- NOTE | 2020-10-27 10:38 | OR ---
DATE: 10/27/2020 PROCEDURES: Esophagogastroduodenoscopy and multiple pinch biopsies. INSTRUMENT USED: GIF-HQ190 Olympus video panendoscope. PREMEDICATIONS: No oral or topical anesthesia used. Fentanyl 100 mcg intravenous, Versed 2 mg intravenous, nasal O2 cannula. The procedure was done under pulse oximetry, BP recording, and phototypesetting equipment monitor. INDICATION: The patient with high dysphagia, unexplained and not responsive to medical measures. Esophagogastroduodenoscopy is performed for detection of any active erosive lesions, Rutledge esophagus and/or malignancy also under consideration, H pylori status to be determined, esophageal dilatations if indicated, endoscopic hemostasis therapy if needed. PROCEDURE IN DETAIL: The scope was passed with ease. Adequate visualization of the esophagus was made from proximal to distal areas. No upper esophageal lesions identified. There was some stricture of the distal esophagus, but the tip of the scope could be passed with ease to visualize the gastric mucosa. Grade A erosive changes were noted by [place] criteria. No esophageal polyp or tumor mass identified. No Henrietta-He tear. Gastric fundus examination by retroflexion showed no polypoid lesions. No proximal gastric varices noted. No gastric ulcer, malignant mass, or vascular ectasia identified. Duodenal bulb showed no ulcer. Visualized second part of the duodenum was unremarkable. Multiple pinch biopsies were taken from the gastric antrum and proximal body, and sent for PyloriTek test for H pylori, and if negative in an hour, the tissue is to be sent for histopathology. No bleeding was noted from any of the visualized areas at the completion of examination. Photographs were taken of the duodenal bulb, gastric antrum, fundus, and distal esophagus. IMPRESSION: 1. Grade A gastroesophageal reflux disease. 2. Peptic esophageal stricture. The patient tolerated the procedure well. [facility] /[id number]
[2020-10-27 11:44] VITALS: BP 160/91; PULSE 60
== END 2020-10-27 11:35 | disposition home or self-care (01) ==
LOC: DL.ENDO 07:27
PROVIDERS: ATTEND Internal Medicine Gastroenterology
DX: K21.9 Gastro-esophageal reflux disease without esophagitis (principal); K22.2 Esophageal obstruction; I10 Essential (primary) hypertension; I12.9 Hypertensive chronic kidney disease with stage 1 through stage 4 chronic kidney disease, or unspecified chronic kidney disease; N18.9 Chronic kidney disease, unspecified; I48.0 Paroxysmal atrial fibrillation; D69.6 Thrombocytopenia, unspecified; E78.00 Pure hypercholesterolemia, unspecified; K64.8 Other hemorrhoids; K57.30 Diverticulosis of large intestine without perforation or abscess without bleeding
CPT/HCPCS: 43239; 43450; 87077; J2250; J3010; J7042

== ENCOUNTER 2021-10-18 12:10 | Emergency (ER) | payer MEDICARE, MEDICAID ==
[2021-10-18] MEDS ORDERED: Benzonatate 100 MG Cap PO ONE ×2 (12:11→15:56)
[2021-10-18 12:24] VITALS: BP 147/84; PULSE 94
[2021-10-18 13:09] LABS: RESPIRATORY SYNCYTIAL VIR NAA NEGATIVE (NEGATIVE)
[2021-10-18 13:13] LABS: CORONAVIRUS COVID-19 NAA POSITIVE (NEGATIVE)
[2021-10-18 15:31] LABS: ANION GAP 12.5 mEq/L (7-13)
[2021-10-18] MEDS ORDERED: Benzonatate 100 MG Cap ONE (16:02)
== END 2021-10-18 16:30 | disposition home or self-care (01) ==
LOC: DL.ED 12:10
DX: U07.1 COVID-19 (principal); I48.91 Unspecified atrial fibrillation; I11.0 Hypertensive heart disease with heart failure; I50.9 Heart failure, unspecified; E78.00 Pure hypercholesterolemia, unspecified; Z86.73 Personal history of transient ischemic attack (TIA), and cerebral infarction without residual deficits; Z88.8 Allergy status to other drugs, medicaments and biological substances; Z88.1 Allergy status to other antibiotic agents; Z88.0 Allergy status to penicillin; Z79.899 Other long term (current) drug therapy
CPT/HCPCS: 0241U; 36415; 71045; 80053; 83605; 84484; 85025; 86140; 87040; 93005; 93010; 99284; A9270

== ENCOUNTER 2021-10-22 09:35 | Emergency (ER) | payer MEDICARE, MEDICAID ==
[2021-10-22] MEDS ORDERED: Sodium Chloride 0.9% 10 ML Syringe FLUSH PRN (10:13)
[2021-10-22 10:23] VITALS: BP 106/72; PULSE 65
[2021-10-22 11:01] LABS: ANION GAP 11.5 mEq/L (7-13)
[2021-10-22] MEDS ORDERED: Sodium Chloride 0.9% 1,000 ML IV ONE (11:30)
[2021-10-22 13:29] LABS: ANION GAP 11.8 mEq/L (7-13)
== END 2021-10-22 13:57 | disposition home or self-care (01) ==
LOC: DL.ED 09:35
DX: U07.1 COVID-19 (principal); N17.9 Acute kidney failure, unspecified; I11.0 Hypertensive heart disease with heart failure; I50.9 Heart failure, unspecified; Z88.8 Allergy status to other drugs, medicaments and biological substances; Z88.1 Allergy status to other antibiotic agents; Z88.0 Allergy status to penicillin; Z79.899 Other long term (current) drug therapy; Z86.73 Personal history of transient ischemic attack (TIA), and cerebral infarction without residual deficits; Z86.16 Personal history of COVID-19
CPT/HCPCS: 36415; 71045; 80048; 80053; 83605; 83880; 84145; 84484; 85025; 85379; 87040; 93005; 93010; 96360; 99284; 99284-25; J3490; J7030

== ENCOUNTER 2021-11-04 12:53 | Emergency (ER) | payer MEDICARE, MEDICAID ==
[2021-11-04 13:10] VITALS: BP 125/104; PULSE 70
== END 2021-11-04 13:50 | disposition home or self-care (01) ==
LOC: DL.ED 12:53
DX: J18.9 Pneumonia, unspecified organism (principal); I48.91 Unspecified atrial fibrillation; E78.00 Pure hypercholesterolemia, unspecified; I12.9 Hypertensive chronic kidney disease with stage 1 through stage 4 chronic kidney disease, or unspecified chronic kidney disease; N18.9 Chronic kidney disease, unspecified; M19.90 Unspecified osteoarthritis, unspecified site; Z86.73 Personal history of transient ischemic attack (TIA), and cerebral infarction without residual deficits; Z88.1 Allergy status to other antibiotic agents; Z88.0 Allergy status to penicillin; Z88.5 Allergy status to narcotic agent; Z79.899 Other long term (current) drug therapy; Z86.16 Personal history of COVID-19; Z87.891 Personal history of nicotine dependence
CPT/HCPCS: 99283; 99284

== ENCOUNTER 2021-11-09 13:14 | Inpatient (IN) | payer MEDICARE, MEDICAID ==
[2021-11-09 16:56] LABS: ANION GAP 12.2 mEq/L (7-13); CHLORIDE,CL 101 mmol/L (98-107); SODIUM,NA 140 mmol/L (136-145)
[2021-11-09 17:05] LABS: ESTIMATED GFR 32 mL/min (>=60)
[2021-11-09 18:19] LABS: RESPIRATORY SYNCYTIAL VIR NAA NEGATIVE (NEGATIVE)
[2021-11-09] MEDS ORDERED: Acetaminophen 325 MG Tab PO PRN (18:25)
[2021-11-09] MEDS ORDERED: Albuterol/Ipratropium 3.0-0.5 MG/3 ML Neb Soln NEB PRN (18:25)
[2021-11-09] MEDS ORDERED: HYDROmorphone 0.5 MG/0.5 ML Syringe IVPUSH PRN (18:25)
[2021-11-09] MEDS ORDERED: Magnesium Hydroxide 400 MG/5 ML Susp 30 ML Cup PO PRN (18:25)
[2021-11-09] MEDS ORDERED: Zolpidem 5 MG Tab PO PRN (18:25)
[2021-11-09] MEDS ORDERED: Ondansetron 4 MG/2 ML SDV IVPUSH PRN (18:25)
[2021-11-09] MEDS ORDERED: Polyethylene Glycol 3350 Powder 17 GM Packet PO PRN (18:25)
[2021-11-09 18:26] LABS: CORONAVIRUS COVID-19 NAA POSITIVE (NEGATIVE)
[2021-11-09] MEDS ORDERED: guaiFENesin/Dextromethorphan 100-10 MG/5 ML Soln 5 ML Cup PO PRN (18:32)
[2021-11-09] MEDS ORDERED: Dexamethasone 4 MG/ML SDV IVPUSH ONE (19:31)
[2021-11-09] MEDS ORDERED: 50% Dextrose in Water 50 ML Syringe IVPUSH PRN (19:33)
[2021-11-09] MEDS ORDERED: Glucagon,Human Recombinant 1 MG Vial IM PRN (19:33)
[2021-11-09] MEDS: Tamsulosin 0.4 MG Cap.ER PO SCH (21:23)
[2021-11-09] MEDS: Gabapentin 300 MG Cap PO SCH (21:23)
[2021-11-09] MEDS: traZODone 50 MG Tab PO SCH (21:23)
[2021-11-09] MEDS: Labetalol 100 MG Tab PO SCH (21:23)
[2021-11-09] MEDS: Sodium Chloride 0.9% 1,000 ML IV SCH (21:25)
[2021-11-09] MEDS: Acetaminophen/HYDROcodone 325-5 MG Tab PO PRN (23:53)
[2021-11-10 07:45] LABS: ANION GAP 10.4 mEq/L (7-13); CHLORIDE,CL 103 mmol/L (98-107); SODIUM,NA 138 mmol/L (136-145)
[2021-11-10] MEDS: Insulin Lispro 100 Units/ML 3 ML Vial SUBCUT SCH ×3 (07:54→17:08)
[2021-11-10 08:04] LABS: ESTIMATED GFR 33 mL/min (>=60)
[2021-11-10] MEDS: Dexamethasone 4 MG/ML SDV IVPUSH SCH (09:18)
[2021-11-10] MEDS: Labetalol 100 MG Tab PO SCH ×2 (09:18→21:33)
[2021-11-10] MEDS: Sodium Chloride 0.9% 10 ML Syringe FLUSH PRN (09:19)
[2021-11-10] MEDS: Sodium Chloride 0.9% 1,000 ML IV SCH (17:54)
[2021-11-10] MEDS ORDERED: diphenhydrAMINE 50 MG/ML SDV IVPUSH ONE (21:13)
[2021-11-10] MEDS: Gabapentin 300 MG Cap PO SCH (21:32)
[2021-11-10] MEDS: Acetaminophen/HYDROcodone 325-5 MG Tab PO PRN (21:32)
[2021-11-10] MEDS: Tamsulosin 0.4 MG Cap.ER PO SCH (21:33)
[2021-11-10] MEDS: traZODone 50 MG Tab PO SCH (21:33)
[2021-11-11] MEDS: Sodium Chloride 0.9% 1,000 ML IV SCH (03:58)
[2021-11-11 07:07] LABS: ANION GAP 12.1 mEq/L (7-13)
[2021-11-11] MEDS: Insulin Lispro 100 Units/ML 3 ML Vial SUBCUT SCH ×3 (09:23→18:39)
[2021-11-11] MEDS: Labetalol 100 MG Tab PO SCH ×2 (09:23→20:35)
[2021-11-11] MEDS: Dexamethasone 4 MG/ML SDV IVPUSH SCH (09:23)
[2021-11-11 09:47] LABS: BORDETELLA PARAPERT IS1001 Not Detected (Not Detected)
[2021-11-11] MEDS: traZODone 50 MG Tab PO SCH (20:35)
[2021-11-11] MEDS: Gabapentin 300 MG Cap PO SCH (20:35)
[2021-11-11] MEDS: Tamsulosin 0.4 MG Cap.ER PO SCH (20:36)
[2021-11-11] MEDS: Sodium Chloride 0.9% 10 ML Syringe FLUSH PRN ×2 (20:37→20:39)
[2021-11-12] MEDS: Insulin Lispro 100 Units/ML 3 ML Vial SUBCUT SCH ×2 (08:33→16:19)
[2021-11-12] MEDS: Labetalol 100 MG Tab PO SCH (08:47)
[2021-11-12] MEDS: Dexamethasone 4 MG/ML SDV IVPUSH SCH (08:49)
[2021-11-12] MEDS: Sodium Chloride 0.9% 10 ML Syringe FLUSH PRN (08:52)
[2021-11-12 12:28] VITALS: BP 158/75; PULSE 58
[2021-11-12] MEDS ORDERED: Pantoprazole 40 MG Tab.CR PO ONE (16:10)
[2021-11-12] MEDS ORDERED: Calcium Carbonate 500 MG Tab.Chew PO ONE (16:10)
== END 2021-11-12 16:20 | disposition home or self-care (01) | DRG 202 ==
LOC: DL.ED 13:14 → DL.MS 17:33 → DL.ED 17:45
PROVIDERS: ADMIT Internal Medicine; ATTEND Internal Medicine
DX: R53.1 Weakness (principal); R53.83 Other fatigue; J40 Bronchitis, not specified as acute or chronic; E27.1 Primary adrenocortical insufficiency; N17.9 Acute kidney failure, unspecified; Z74.1 Need for assistance with personal care; I12.9 Hypertensive chronic kidney disease with stage 1 through stage 4 chronic kidney disease, or unspecified chronic kidney disease; E03.9 Hypothyroidism, unspecified; E78.00 Pure hypercholesterolemia, unspecified; U09.9 Post COVID-19 condition, unspecified; N18.30 Chronic kidney disease, stage 3 unspecified; E78.5 Hyperlipidemia, unspecified; I48.0 Paroxysmal atrial fibrillation; G40.909 Epilepsy, unspecified, not intractable, without status epilepticus; K57.90 Diverticulosis of intestine, part unspecified, without perforation or abscess without bleeding; D69.6 Thrombocytopenia, unspecified; M51.36 Other intervertebral disc degeneration, lumbar region; G89.4 Chronic pain syndrome; G62.9 Polyneuropathy, unspecified; M19.90 Unspecified osteoarthritis, unspecified site; F41.9 Anxiety disorder, unspecified; M48.061 Spinal stenosis, lumbar region without neurogenic claudication; N40.0 Benign prostatic hyperplasia without lower urinary tract symptoms; T38.0X5A Adverse effect of glucocorticoids and synthetic analogues, initial encounter; G47.00 Insomnia, unspecified; R73.9 Hyperglycemia, unspecified; E80.6 Other disorders of bilirubin metabolism; Z79.890 Hormone replacement therapy; Z86.73 Personal history of transient ischemic attack (TIA), and cerebral infarction without residual deficits; Z98.890 Other specified postprocedural states; Z79.899 Other long term (current) drug therapy
CPT/HCPCS: 0241U; 36415; 71045; 80053; 81001; 82306; 82947; 83605; 83735; 84439; 84443; 85025; 85610; 85651; 86140; 87040; 87486; 87581; 87633; 87798; 93005; 93010; 97116-GP; 97161-GP; 99284; 99285; A9270-GY; J1100; J1200; J1815-GY; J3490; J7030

== ENCOUNTER 2022-01-02 11:46 | Emergency (ER) | payer MEDICARE, MEDICAID ==
[2022-01-02] MEDS ORDERED: Dicyclomine 10 MG Cap PO ONE (11:47)
[2022-01-26 11:52] LABS: SODIUM,NA 144 mmol/L (136-145)
[2022-01-26 11:53] LABS: ANION GAP 13.6 mEq/L (7-13); CHLORIDE,CL 105 mmol/L (98-107); ESTIMATED GFR 35 mL/min (>=60)
== END 2022-01-02 13:36 | disposition home or self-care (01) ==
LOC: DL.ED 11:46
DX: K52.9 Noninfective gastroenteritis and colitis, unspecified (principal); I10 Essential (primary) hypertension; E03.9 Hypothyroidism, unspecified; Z88.0 Allergy status to penicillin; Z79.899 Other long term (current) drug therapy; Z88.8 Allergy status to other drugs, medicaments and biological substances
CPT/HCPCS: 36415; 80053; 83605; 85025; 86140; 99283; A9270-GY

== ENCOUNTER 2022-02-10 11:00 | Emergency (ER) | payer MEDICARE, MEDICAID ==
[2022-02-10 11:27] VITALS: BP 108/79; PULSE 76
[2022-02-10] MEDS ORDERED: Sodium Chloride 0.9% 10 ML Syringe FLUSH PRN (11:44)
[2022-02-10] MEDS ORDERED: Sodium Chloride 0.9% 1,000 ML IV ONE (11:44)
[2022-02-10 12:15] LABS: ANION GAP 9.1 mEq/L (7-13); CHLORIDE,CL 103 mmol/L (98-107); SODIUM,NA 140 mmol/L (136-145)
[2022-02-10 12:20] LABS: ESTIMATED GFR 31 mL/min (>=60)
== END 2022-02-10 13:25 | disposition home or self-care (01) ==
LOC: DL.ED 11:00
DX: A04.72 Enterocolitis due to Clostridium difficile, not specified as recurrent (principal); I13.0 Hypertensive heart and chronic kidney disease with heart failure and stage 1 through stage 4 chronic kidney disease, or unspecified chronic kidney disease; I50.9 Heart failure, unspecified; N18.9 Chronic kidney disease, unspecified; Z88.0 Allergy status to penicillin; Z88.1 Allergy status to other antibiotic agents; Z88.8 Allergy status to other drugs, medicaments and biological substances; Z79.899 Other long term (current) drug therapy
CPT/HCPCS: 36415; 80053; 85025; 96360; 99284; J3490; J7030

== ENCOUNTER 2024-03-18 11:29 | Inpatient (IN) | payer MEDICARE, MEDICAID ==
[2024-03-18 12:22] LABS: BASOPHILS PERCENT AUTO 0.3 % (0.0-1.0); EOSINOPHILS PERCENT AUTO 0.1 % (1.0-3.0); HEMOGLOBIN 14.5 g/dL (14.0-18.0); LYMPHOCYTES PERCENT AUTO 4.7 % (20.5-50.1); MEAN CORPUSCULAR HEMOGLOBIN 31.5 pg (27.0-34.0); MEAN CORPUSCULAR HGB CONC 34.5 g/dL (33.0-35.0); MEAN CORPUSCULAR VOLUME 91.3 fL (80-100); MONOCYTES PERCENT AUTO 8.5 % (2-8); NEUTROPHILS PERCENT AUTO 86.4 % (42.2-75.2); PLATELET COUNT,PLT 119 10^3/uL (150-450); WHITE BLOOD CELL COUNT,WBC 11.5 10^3/uL (5.0-10.0)
[2024-03-18 12:35] LABS: O2 DELIVERY DEVICE NASAL CANNULA
[2024-03-18] MEDS: Sodium Chloride 0.9% 1,000 ML IV ONE (12:35)
[2024-03-18 12:37] LABS: PCO2 VENOUS 42 mmHg (41-51); PO2 VENOUS 102 mmHg (35-42)
[2024-03-18 12:38] LABS: BASE EXCESS VENOUS 1.2 mmol/l ((-2)-(+3)); BICARBONATE,VENOUS 26 mmol/l (19-25); O2 SATURATION VENOUS 97.8 % (60-80)
[2024-03-18 12:38] LABS: A/G RATIO 1.4; ALANINE AMINOTRANSFERASE,ALT 25 U/L (16-63); ALBUMIN 3.7 g/dL (3.4-5.0); ALKALINE PHOSPHATASE 76 U/L (46-116); ANION GAP 14.2 mEq/L (7-13); ASPARTATE AMNIOTRANSFERASE,AST 20 U/L (15-37); BILIRUBIN TOTAL 2.2 mg/dL (0.2-1.0); BLOOD UREA NITROGEN,BUN 36 mg/dL (7-18); BUN/CREATININE RATIO 14.3 (No establ ref range); CALCIUM 8.6 mg/dL (8.5-10.1); CARBON DIOXIDE,CO2 29 mmol/L (21-32); CHLORIDE,CL 100 mmol/L (98-107); CREATININE 2.52 mg/dL (0.70-1.30); GLUCOSE RANDOM 147 mg/dL (70-99); LACTIC ACID 1.5 mmol/L (0.4-2.0); POTASSIUM,K 4.2 mmol/L (3.5-5.1); PROTEIN TOTAL,TP 6.4 g/dL (6.4-8.2); SODIUM,NA 139 mmol/L (136-145)
[2024-03-18 12:39] LABS: ESTIMATED GFR 25 mL/min (>=60); ETHANOL BLOOD MEDICAL < 3 mg/dL (0)
[2024-03-18] MEDS: Albuterol/Ipratropium 3.0-0.5 MG/3 ML Neb Soln NEB ONE (12:52)
[2024-03-18 13:01] LABS: INR 1.1 (0.9-1.2); PROTHROMBIN TIME 11.2 SEC (9.0-12.0); PTT,PARTIAL THROMBOPLSTIN TIME 29.9 SEC (22.0-34.0)
[2024-03-18] MEDS: Lactated Ringers 1,000 ML IV SCH (13:57)
[2024-03-18] MEDS ORDERED: Acetaminophen 325 MG Tab PO PRN (15:43)
[2024-03-18] MEDS ORDERED: Docusate Sodium 100 MG Cap PO PRN (15:45)
[2024-03-18] MEDS ORDERED: oxyCODONE 5 MG Tab PO PRN (15:45)
[2024-03-18] MEDS ORDERED: Ondansetron 4 MG/2 ML SDV IVPUSH PRN (15:45)
[2024-03-18 16:08] LABS: C-REACTIVE PROTEIN 11.72 ng/dL (<=0.50)
[2024-03-18] MEDS: Famotidine 20 MG/2 ML SDV IVPUSH SCH (17:20)
[2024-03-18] MEDS: Pantoprazole 40 MG Tab.CR PO SCH (18:39)
[2024-03-18] MEDS: Acetaminophen 325 MG Tab PO PRN (21:44)
[2024-03-18] MEDS: Heparin Sodium 5,000 Units/ML Vial SUBCUT SCH (21:44)
[2024-03-18] MEDS: Gabapentin 300 MG Cap PO SCH (21:44)
[2024-03-18] MEDS: Labetalol 100 MG Tab PO SCH (21:45)
[2024-03-18] MEDS: Tamsulosin 0.4 MG Cap.ER PO SCH (21:45)
[2024-03-18] MEDS: traZODone 50 MG Tab PO PRN (21:45)
[2024-03-18] MEDS: Sodium Chloride 0.9% 1,000 ML IV SCH (22:39)
[2024-03-19] MEDS: Dexamethasone 4 MG/ML SDV IVPUSH SCH (09:39)
[2024-03-19] MEDS: Levothyroxine 25 MCG Tab PO SCH (09:41)
[2024-03-19 12:50] LABS: HEMATOCRIT 37.9 % (40.0-54.0); HEMOGLOBIN 13.1 g/dL (14.0-18.0); MEAN CORPUSCULAR HEMOGLOBIN 31.8 pg (27.0-34.0); MEAN CORPUSCULAR HGB CONC 34.6 g/dL (33.0-35.0); RED BLOOD CELL COUNT 4.12 10^6/uL (4.6-6.2)
[2024-03-19 13:06] LABS: ANION GAP 12.8 mEq/L (7-13); CALCIUM 8.4 mg/dL (8.5-10.1); CREATININE 1.96 mg/dL (0.70-1.30); EST CRCL DRUG DOSING (CG) 30.52 mL/min; POTASSIUM,K 3.8 mmol/L (3.5-5.1)
[2024-03-19 13:07] LABS: PROTHROMBIN TIME 10.8 SEC (9.0-12.0)
[2024-03-20 06:47] LABS: ANION GAP 11.9 mEq/L (7-13); CALCIUM 8.3 mg/dL (8.5-10.1); CREATININE 1.9 mg/dL (0.70-1.30); EST CRCL DRUG DOSING (CG) 31.48 mL/min; POTASSIUM,K 3.9 mmol/L (3.5-5.1)
[2024-03-20] MEDS: Simethicone 80 MG Tab.Chew PO PRN (22:58)
[2024-03-21] MEDS: Diltiazem 25 MG/5 ML SDV IVPUSH ONE (19:47)
[2024-03-21] MEDS: Diltiazem 25 MG/5 ML SDV ONE (19:59)
[2024-03-21] MEDS: Diltiazem 125 MG in Sodium Chloride 0.9% 100 ML IV SCH (20:08)
[2024-03-21] MEDS ORDERED: Apixaban 5 MG Tab PO SCH (21:00)
[2024-03-21] MEDS: Metoprolol Tartrate 5 MG/5 ML SDV IVPUSH ONE (21:20)
[2024-03-21] MEDS: Apixaban 5 MG Tab PO SCH (21:21)
[2024-03-22 05:55] LABS: HEMATOCRIT 35.1 % (40.0-54.0); HEMOGLOBIN 11.8 g/dL (14.0-18.0); MEAN CORPUSCULAR HEMOGLOBIN 31.2 pg (27.0-34.0); MEAN CORPUSCULAR HGB CONC 33.6 g/dL (33.0-35.0); MEAN CORPUSCULAR VOLUME 92.9 fL (80-100); RED BLOOD CELL COUNT 3.78 10^6/uL (4.6-6.2); WHITE BLOOD CELL COUNT,WBC 10.7 10^3/uL (5.0-10.0)
[2024-03-22 06:10] LABS: ANION GAP 11.2 mEq/L (7-13); CALCIUM 8.3 mg/dL (8.5-10.1); CREATININE 1.9 mg/dL (0.70-1.30); EST CRCL DRUG DOSING (CG) 31.48 mL/min; POTASSIUM,K 4.2 mmol/L (3.5-5.1)
[2024-03-22] MEDS: Nirmatrelvir/Ritonavir 150 MG/100 MG Dose Pack (Renal Dose) PO SCH (11:02)
[2024-03-22] MEDS ORDERED: hydrALAZINE 20 MG/ML SDV IVPUSH PRN (23:12)
[2024-03-23 06:18] LABS: HEMOGLOBIN 11.9 g/dL (14.0-18.0); MEAN CORPUSCULAR HEMOGLOBIN 31.2 pg (27.0-34.0); MEAN CORPUSCULAR VOLUME 91.9 fL (80-100); RED BLOOD CELL COUNT 3.81 10^6/uL (4.6-6.2)
[2024-03-23 06:33] LABS: ANION GAP 12.2 mEq/L (7-13); CALCIUM 8.4 mg/dL (8.5-10.1); CREATININE 1.91 mg/dL (0.70-1.30); EST CRCL DRUG DOSING (CG) 31.32 mL/min; POTASSIUM,K 4.2 mmol/L (3.5-5.1)
[2024-03-23 08:25] VITALS: BP 169/85
[2024-03-23 09:54] VITALS: PULSE 56
== END 2024-03-23 12:10 | disposition home health service (06) | DRG 177 ==
LOC: DL.ED 11:29 → DL.MS 13:48 → DL.ED 14:21 → OBSVTOIN 03-20 08:43
PROVIDERS: ADMIT Internal Medicine; ATTEND Internal Medicine
PROC: 3E0333Z Introduction of Anti-inflammatory into Peripheral Vein, Percutaneous Approach (ICD-10-PCS; principal; 2024-03-19)
PROC: 8E0ZXY6 Isolation (ICD-10-PCS; 2024-03-19)
DX: U07.1 COVID-19 (principal); J12.82 Pneumonia due to coronavirus disease 2019; J96.00 Acute respiratory failure, unspecified whether with hypoxia or hypercapnia; I13.0 Hypertensive heart and chronic kidney disease with heart failure and stage 1 through stage 4 chronic kidney disease, or unspecified chronic kidney disease; Z79.890 Hormone replacement therapy; N17.9 Acute kidney failure, unspecified; N18.9 Chronic kidney disease, unspecified; I48.91 Unspecified atrial fibrillation; I50.9 Heart failure, unspecified; Z88.6 Allergy status to analgesic agent; E78.00 Pure hypercholesterolemia, unspecified; M54.2 Cervicalgia; G89.29 Other chronic pain; M19.90 Unspecified osteoarthritis, unspecified site; F41.9 Anxiety disorder, unspecified; E03.9 Hypothyroidism, unspecified; K21.9 Gastro-esophageal reflux disease without esophagitis; G40.909 Epilepsy, unspecified, not intractable, without status epilepticus; Z88.8 Allergy status to other drugs, medicaments and biological substances; Z88.0 Allergy status to penicillin; Z88.1 Allergy status to other antibiotic agents; Z88.5 Allergy status to narcotic agent; Z79.51 Long term (current) use of inhaled steroids; Z79.899 Other long term (current) drug therapy; Z87.19 Personal history of other diseases of the digestive system; Z86.73 Personal history of transient ischemic attack (TIA), and cerebral infarction without residual deficits; Z98.49 Cataract extraction status, unspecified eye
CPT/HCPCS: 36415 ×3; 70450; 71045; 80048 ×2; 80053; 80307; 82728; 82803; 82947; 83605; 83615; 83735; 84145; 84484; 85025; 85027; 85379; 85610 ×2; 85730; 86140; 87040 ×2; 87077; 87428; 96360; 97161; 97165; 99285; A9270 ×11; J1100; J1644 ×5; J3490 ×2; J7030 ×3; J7120; 87070; 87186; 87205; 93005; 96361; 96372; 96374; 97116-GP; 97530-GO; 97530-GP; 97535-GO; G0378; J7620-GY

== ENCOUNTER 2024-03-25 11:41 | Emergency (ER) | payer MEDICARE, MEDICAID ==
[2024-03-25 12:01] VITALS: BP 121/82; PULSE 110
[2024-03-25] MEDS ORDERED: Sodium Chloride 0.9% 10 ML Syringe FLUSH PRN (12:15)
[2024-03-25 12:38] LABS: HEMATOCRIT 41.2 % (40.0-54.0); HEMOGLOBIN 14.1 g/dL (14.0-18.0); MEAN CORPUSCULAR HEMOGLOBIN 31.3 pg (27.0-34.0); MEAN CORPUSCULAR HGB CONC 34.2 g/dL (33.0-35.0); MEAN CORPUSCULAR VOLUME 91.4 fL (80-100); PLATELET COUNT,PLT 155 10^3/uL (150-450); RED BLOOD CELL COUNT 4.51 10^6/uL (4.6-6.2); WHITE BLOOD CELL COUNT,WBC 11.5 10^3/uL (5.0-10.0)
[2024-03-25 12:53] LABS: BASOPHILS PERCENT AUTO 0.1 % (0.0-1.0); EOSINOPHILS PERCENT AUTO 0.6 % (1.0-3.0); LYMPHOCYTES PERCENT AUTO 10.7 % (20.5-50.1); MONOCYTES PERCENT AUTO 9.7 % (2-8); NEUTROPHILS PERCENT AUTO 78.9 % (42.2-75.2)
[2024-03-25 13:04] LABS: ALBUMIN 3.1 g/dL (3.4-5.0); ANION GAP 15.2 mEq/L (7-13); BUN/CREATININE RATIO 19.7 (No establ ref range); CALCIUM 8.6 mg/dL (8.5-10.1); CREATININE 2.08 mg/dL (0.70-1.30); EST CRCL DRUG DOSING (CG) 28.76 mL/min; POTASSIUM,K 4.2 mmol/L (3.5-5.1); PROTEIN TOTAL,TP 5.4 g/dL (6.4-8.2)
[2024-03-25 13:09] LABS: A/G RATIO 1.35
[2024-03-25 13:22] LABS: LYMPHOCYTES PERCENT MAN 11 % (20-50); SEG NEUTROPHILS PERCENT MAN 81 % (42-75)
[2024-03-25 13:23] LABS: EOSINOPHILS PERCENT MAN 1 % (1-3); MONOCYTES PERCENT MAN 7 % (2-8)
[2024-03-25] MEDS: Sodium Chloride 0.9% 500 ML IV ONE (13:35)
[2024-03-25] MEDS: Take Home: Benzonatate 100 MG, 6 Cap Pack PO ONE (15:17)
== END 2024-03-25 15:27 | disposition home or self-care (01) ==
LOC: DL.ED 11:41
DX: E86.0 Dehydration (principal); R05.8 Other specified cough; I13.0 Hypertensive heart and chronic kidney disease with heart failure and stage 1 through stage 4 chronic kidney disease, or unspecified chronic kidney disease; I50.9 Heart failure, unspecified; N18.9 Chronic kidney disease, unspecified; I48.91 Unspecified atrial fibrillation; Z79.899 Other long term (current) drug therapy; Z88.0 Allergy status to penicillin; Z88.8 Allergy status to other drugs, medicaments and biological substances; Z88.6 Allergy status to analgesic agent; Z88.1 Allergy status to other antibiotic agents; Z79.01 Long term (current) use of anticoagulants
CPT/HCPCS: 36415; 80053; 83880; 84484; 85025; 93005; 96360; 99285; A9270; J7040

== ENCOUNTER 2024-04-04 13:37 | Emergency (ER) | payer MEDICARE, MEDICAID ==
[2024-04-04] MEDS ORDERED: Sodium Chloride 0.9% 10 ML Syringe FLUSH PRN (13:53)
[2024-04-04 14:02] LABS: BASOPHILS PERCENT AUTO 0.2 % (0.0-1.0); EOSINOPHILS PERCENT AUTO 0.4 % (1.0-3.0); HEMATOCRIT 39.4 % (40.0-54.0); LYMPHOCYTES PERCENT AUTO 7.6 % (20.5-50.1); MONOCYTES PERCENT AUTO 5.7 % (2-8); NEUTROPHILS PERCENT AUTO 86.1 % (42.2-75.2); PLATELET COUNT,PLT 119 10^3/uL (150-450); RED BLOOD CELL COUNT 4.19 10^6/uL (4.6-6.2); WHITE BLOOD CELL COUNT,WBC 8.4 10^3/uL (5.0-10.0)
[2024-04-04] MEDS: Sodium Chloride 0.9% 500 ML IV SCH ×2 (14:07→16:14)
[2024-04-04 14:25] LABS: A/G RATIO 1.27; ALBUMIN 3.3 g/dL (3.4-5.0); ANION GAP 10.6 mEq/L (7-13); BILIRUBIN TOTAL 0.8 mg/dL (0.2-1.0); BUN/CREATININE RATIO 13.8 (No establ ref range); CALCIUM 8.7 mg/dL (8.5-10.1); CREATININE 1.88 mg/dL (0.70-1.30); EST CRCL DRUG DOSING (CG) 31.82 mL/min; POTASSIUM,K 4.6 mmol/L (3.5-5.1); PROTEIN TOTAL,TP 5.9 g/dL (6.4-8.2)
[2024-04-04 14:26] LABS: LACTIC ACID 0.9 mmol/L (0.4-2.0)
[2024-04-04 14:41] LABS: PROTHROMBIN TIME 10.4 SEC (9.0-12.0); PTT,PARTIAL THROMBOPLSTIN TIME 25.2 SEC (22.0-34.0)
[2024-04-04 14:51] VITALS: BP 165/92; PULSE 84
[2024-04-04 15:46] LABS: APPEARANCE,URINE CLEAR (CLEAR); BILIRUBIN,URINE NEGATIVE (NEGATIVE); COLOR,URINE YELLOW (YELLOW); GLUCOSE,URINE NEGATIVE (NEGATIVE); KETONES,URINE NEGATIVE (NEGATIVE); LEUKOCYTE ESTERASE,URINE NEGATIVE (NEGATIVE); NITRITE,URINE NEGATIVE (NEGATIVE); OCCULT BLOOD,URINE NEGATIVE (NEGATIVE); PROTEIN,URINE 30 (NEGATIVE); UROBILINOGEN,URINE 0.2 mg/dL (0.2-1.0)
[2024-04-04 16:06] LABS: BACTERIA,URINE RARE /HPF (0-FEW/HPF); EPITHELIAL CELLS,URINE RARE /HPF (NOT SEEN); RBC,URINE 0-5 /HPF (0-5); WBC,URINE 0-5 /HPF (0-5/HPF)
[2024-04-04] MEDS: hydrALAZINE 20 MG/ML SDV IVPUSH ONE (16:17)
== END 2024-04-04 16:27 ==
LOC: DL.ED 13:37
DX: R51.9 Headache, unspecified (principal); I48.91 Unspecified atrial fibrillation; I13.0 Hypertensive heart and chronic kidney disease with heart failure and stage 1 through stage 4 chronic kidney disease, or unspecified chronic kidney disease; I50.9 Heart failure, unspecified; N18.9 Chronic kidney disease, unspecified; E78.00 Pure hypercholesterolemia, unspecified; Z88.8 Allergy status to other drugs, medicaments and biological substances; Z88.1 Allergy status to other antibiotic agents; Z88.0 Allergy status to penicillin; Z79.01 Long term (current) use of anticoagulants; Z79.899 Other long term (current) drug therapy; Z86.73 Personal history of transient ischemic attack (TIA), and cerebral infarction without residual deficits; Z86.16 Personal history of COVID-19
CPT/HCPCS: 36415; 71045; 72040; 80053; 80307; 81001; 83605; 83735; 83880; 84443; 84484; 85025; 85379; 85610; 85730; 86140; 93005; 93010; 96361; 96374; 99284; 99285-25; J0360; J7040